=== PATIENT | female | born 1930 | race Caucasian/White ===

== ENCOUNTER 2019-06-09 06:09 | Inpatient (IN) | payer MEDICARE, OTHER ==
[2019-06-09] MEDS ORDERED: Morphine 4 MG/ML VIAL ONE ×2 (06:33→08:33)
[2019-06-09] MEDS ORDERED: Ondansetron PF 4 MG/2 ML Vial ONE ×2 (06:33→06:34)
[2019-06-09 07:31] LABS: #Lymphocytes 0.7 thou/uL (1.20-3.40); #Monocytes 0.6 thou/uL (0.11-0.59); #Neutrophils 5.8 thou/uL (1.40-6.50); %Basophils 0.2 % (0.0-1.0); %Eosinophils 0.3 % (0.0-10.0); %Lymphocytes 9.4 % (21.0-51.0); %Monocytes 8.2 % (0.0-10.0); Hemoglobin 11.4 g/dL (12.0-16.0); Mean Corpuscular Hemoglobin 27.7 pg (27.0-31.0); Mean Corpuscular Volume 89.3 fL (78.0-98.0); Mean Platelet Volume 6.9 fL (7.4-10.4); Platelet Count 252 thou/uL (130-400); RBC Distribution Width 14.1 % (11.5-14.5); Red Blood Cell (RBC) Count 4.11 mill/uL (4.20-5.40); White Blood Cell (WBC) Count 7.1 thou/uL (4.8-10.8)
[2019-06-09 07:56] LABS: ALT (SGPT) 11 U/L (8-55); AST (SGOT) 20 U/L (5-34); Albumin 3.5 g/dL (3.4-4.8); Alkaline Phosphatase 64 U/L (40-110); Anion Gap 8 mmol/L (10-20); BUN (Urea Nitrogen) 16 mg/dL (9.8-20.1); Bilirubin, Total 0.6 mg/dL (0.2-1.2); Calc. Creatinine Clearance 0 mL/min (70-130); Calcium 9.7 mg/dL (7.8-10.44); Carbon Dioxide 34 mmol/L (23-31); Chloride 101 mmol/L (98-107); Estimated GFR-MDRD Greater than 90; Globulin 3.2 g/dL (2.4-3.5); Glucose 143 mg/dL (83-110); Potassium 4.3 mmol/L (3.5-5.1); Protein, Total 6.7 g/dL (6.0-8.3); Sodium 139 mmol/L (136-145)
--- NOTE | 2019-06-09 08:41 | CT ---
PELVIC CT WITHOUT CONTRAST: HISTORY: Fall. Trauma. Pain. COMPARISON: None. FINDINGS: Visualized solid organs and alimentary canal are unremarkable. Ventral abdominal hernia containing m esenteric fat. The herniated fat is well encapsulated and measures 5.2 x 4.2 cm. No evidence of bow el herniation. Visualized urinary bladder is unremarkable. Atrophic reproductive structures are noted. The visualized lumbar spine is unremarkable. Sacrum is intact. Sacral ala are preserved. The left and right iliac wings are unremarkable. Bilateral obturator rings are intact. There is an angulated right femoral subcapital fracture with associated deformity. The left hip is unremarkable. IMPRESSION: Right hip subcapital fracture. POS: OFF
--- NOTE | 2019-06-09 08:45 | RAD ---
Exam:2 views right hip HISTORY: Pain. COMPARISON: None FINDINGS: Right subcapital fracture. Associated angulation and deformity. IMPRESSION: Right subcapital fracture.
--- NOTE | 2019-06-09 09:13 | CON ---
DATE OF CONSULTATION: 06/09/2019 This is Mary Mahmood PA-C dictating a report for Bry Sanchez MD. REQUESTING PHYSICIAN: Dr. Sun. CONSULTING PHYSICIAN: Bry Sanchez MD. REASON FOR CONSULTATION: Right hip fracture. HISTORY OF PRESENT ILLNESS: This is an 88-year-old female, who presented to the emergency department after 4 days of a right hip pain. She denies any sort of trauma or fall. Currently at bedside, her reports that she sees Dr. Robertson for regular back injections and is due for an injection today actually. They figured that her worsening pain was actually coming from her back. This worsened, then she was no longer able to walk, and they presented to our emergency facility. Workup in the emergency department including a CT scan of the right hip, demonstrates a displaced subcapital femoral neck fracture. Currently at bedside , the patient denies any other injuries. She denies any numbness or tingling. She does state that she has bunions on bilateral feet and history of hammertoe on her second toe bilaterally. She is currently undergoing wound care on the right foot for this hammertoe. The pain is worse with movement, relieved with rest, and she is unable to ambulate. She normally ambulates with a walker at home. PAST MEDICAL HISTORY: Significant for diabetes type 2, hypertension, stroke in January of 2016, and cardiac valve disease. PAST SURGICAL HISTORY: Aortic valve replacement on November 06, 2015, cyst removal of the left ovary, right knee replacement, cataract removal, intraocular lens implant, and bilateral hammer toe amputation. SOCIAL HISTORY: The patient denies alcohol or tobacco use. She lives at home with her and ambulates normally with a walker. FAMILY HISTORY: Reviewed and noncontributory. Ten-point review of systems conducted and otherwise negative except for stated above. PHYSICAL EXAMINATION: VITAL SIGNS: Shows current vital signs including blood pressure of 209/95, pulse of 77, respiratory rate of 20, temperature 98.0, pain 10/10, and O2 saturation of 92% on room air. GENERAL: The patient is awake and alert. She is in no apparent distress. She is lying supine on a stretcher in the emergency department with her currently at bedside. She is pleasant and cooperative with all questions today and answers them appropriately. HEENT: Head was normocephalic and atraumatic. NECK: Supple. Trachea midline. Breathing is nonlabored. EXTREMITIES: Evaluation of bilateral lower extremity shows no evidence of obvious leg shortening or external rotation. She does have gauze padding to both feet in the area of her bunions. She also has a wound dressing present on her right lower extremity to her second toe. No evidence of cellulitis. No distal pitting edema. The patient has pain with any movement of the right lower extremity. SKIN: Intact overlying the right hip. No obvious injuries are noted to the remainder of the extremities. RADIOGRAPHIC IMAGING: Reviewed today including CT evaluation of the right hip shows a displaced femoral neck fracture. Further imaging with plain film shows a subcapital displaced fracture of the right hip. LABORATORY DATA: Including a CBC shows a hemoglobin of 11.4, hematocrit 36.7, white blood cell count of 7.1, and a platelet count of 252. ASSESSMENT: Right femoral neck fracture with displacement. PLAN: At this time, the patient will be admitted to the Trauma Service. She did have her Eliquis last night. We will hold off on surgical intervention today. We will get her upstairs and get her comfortable. We will wait on this window in order to operate. We will plan for a right hip hemiarthroplasty in order to restore function and promote ambulation. Risks, benefits, and alternatives of the surgery were discussed at length with the patient and her today. They have verbalized understanding. They are amenable to the plan of care as listed above. Job ID: [id number] MTDD
[2019-06-09] MEDS ORDERED: Dextrose 50% Abboject 50 ML SYRINGE SLOW IVP PRN (10:34)
[2019-06-09] MEDS ORDERED: Dextrose 5% in Water 1,000 ML IV PRN ×2 (10:34→13:26)
[2019-06-09] MEDS ORDERED: Ondansetron PF 4 MG/2 ML Vial IVP PRN (10:34)
[2019-06-09] MEDS ORDERED: HYDROcodone/Acetaminophen 5/325 mg Tablet PO PRN ×2 (10:40→12:03)
[2019-06-09] MEDS ORDERED: HYDROcodone/Acetaminophen 5/325 mg Tablet ONE (11:09)
[2019-06-09 12:46] LABS: Bilirubin Negative (Negative); Blood, Urine Negative (Negative); Clarity Turbid (Clear); Glucose, Urine (Dipstick) Normal (Negative); Leukocyte 500 Leu/uL (Negative); Nitrite 2+ (Negative); Protein, Urine (Dipstick) 50 mg/dL (Neg-Trace); Squamous Epithelial 0-3 HPF (0-3); Urobilinogen Normal mg/dL (Less than 2)
[2019-06-09 12:47] LABS: RBC/HPF 0-3 HPF (0-3); WBC/HPF 0-3 HPF (0-3)
[2019-06-09 12:48] LABS: Bacteria/HPF 2+ HPF (None Seen); Triple Phosphate Crystal 3+ HPF (None Seen)
--- NOTE | 2019-06-09 15:04 | HP ---
TRAUMA ATTENDING: Dr. Colt Carlos. CONSULTING ORTHOPEDIST: Dr. Sanchez. The patient's PCP is Dr. Oseguera, Cardiology is Dr. Ramírez as well as dr. Ramirez, Pain Medicine is Dr. Robertson. HISTORY OF PRESENT ILLNESS: Ms. Galeas is an 88-year-old female with past medical history of chronic back pain, restless legs syndrome, hypertension, and diabetes , presented to the emergency department today with chief complaint of worsening low back pain and right sided pain. CT exam in the emergency department shows a right-sided subcapital hip fracture with displacement. The patient was given pain control and we were asked to admit the patient to the Trauma Service. Of note, the patient is on Eliquis for an aortic valve replacement. Her last dose was last night. Orthopedics has seen the patient and planning for operative repair in 48 hours after last dose of medication. I evaluated the patient on the surgery hsieh. She is alert and oriented. She was hypertensive. This is slowly improved. She has not taken her home medications. She has no breathing troubles. No chest pain. They are unsure of the etiology of her hip fracture. She states that she has had no falls. She started hurting about a week ago. It got acutely worse about 4 days ago and then much worse yesterday where she could not even transfer out of her wheelchair. She normally gets about with a walker, however, with this pain, she has been in a wheelchair. She did have plain films at outside facility and awaiting results of the same yesterday. PAST MEDICAL HISTORY: Chronic pain, restless leg, hypertension, diabetes, and aortic valve replacement. PAST SURGICAL HISTORY: Percutaneous aortic valve replacement and a cyst removal. MEDICATIONS: 1. Eliquis 2.5 mg. 2. [place] 3. Fish oil. 4. Lasix 20. 5. Multivitamin. 6. Iron 325. 7. Lisinopril 10. 8. Metoprolol 25. 9. Metformin 500. 10. Potassium 10. 11. Verapamil 120 extended release. 12. Calcium. 13. Ropinirole 1 mg. ALLERGIES: CODEINE AND TRAMADOL CAUSING SWELLING ABOUT THE LIPS. FAMILY HISTORY: Significant for diabetes and hypertension in her mother, unknown in her father. SOCIAL HISTORY: The patient quit smoking many years ago. No tobacco or alcohol use. She is currently , lives at home. Utilizes a walker to get a bout. PHYSICAL EXAMINATION: VITAL SIGNS: Temperature is 98.1, blood pressure is 177/79, heart rate is 88, respiratory rate is 14. She is saturating 97% on nasal cannula. GENERAL: This is an 88-year-old female, in slight pain, lying supine in bed. HEENT: Normocephalic and atraumatic. Trachea is midline. No JVD is appreciated. RESPIRATORY: Equal rise and fall. Bilateral breath sounds. Clear to auscultation in upper and lower lobes bilaterally. CARDIOVASCULAR: She has a systolic murmur noted with regular rhythm. Strong pulses. No edema. ABDOMEN: Soft and nontender. Pelvis is stable. Does have pain to the right hip. MUSCULOSKELETAL: She has pain, shortening of the right lower extremity. She also has a wound about the right second toe that is being followed by Wound Care and bunions bilaterally. She has no edema. She has strong pulses in all 4 extremities and warm extremities. PSYCHIATRIC: Normal mood and affect. NEUROLOGIC: Alert and oriented to person, place, time, and event. DIAGNOSTIC DATA: From today, white blood cell count is 7.1, platelets 252, hemoglobin and hematocrit of 11.4 and 36.7 respectively. Chemistry; sodium is 139, potassium 4.3, chloride is 101, CO2 is 34, BUN is 16, creatinine 0.59, glucose 143, calcium is 9.7. Total bilirubin 0.6, AST and ALT of 20 and 11 respectively. The remainder of the liver profile is unremarkable. Urine is trace ketones, 2+ nitrites and leukocyte esterase with no epithelial cells and 2+ bacteria. CT shows the right subcapital hip fracture. ASSESSMENT: 1. Right subcapital hip fracture. 2. Bacteriuria, possible urinary tract infection, not septic. 3. History of diabetes. 4. History of aortic valve replacement. 5. Acute traumatic pain. PLAN: 1. We will admit the patient to surgery hsieh. 2. Orthopedics has been consulted, appreciate recommendations. 3. Can eat today likely surgery over the weekend. 4. We will hold Eliquis. 5. Point of care glucose and sliding scale insulin. 6. Wound care consult for the foot. 7. Cipro for her UTI. 8. Urine culture. 9. Continue home antihypertensive medications. 10. Hydralazine as needed for breakthrough antihypertensive with hold parameters. 11. Continue pain control with [place] and scheduled ibuprofen. 12. Oxygen as needed to maintain SpO2 greater than 92%. 13. Famotidine for GI prophylaxis. Diet will be carb controlled. 14. Access of peripheral IV. 15. Disposition is surgery hsieh. 16. Prophylaxis is again famotidine. 17. The patient's pain medicine doctor has been advised for admission. 18. I have coordinated care with the emergency department staff, the floor staff , as well as Orthopedics. The patient was discussing with Dr. Colt Carlos. Job ID: [id number] MTDTiffany
[2019-06-09] MEDS: Ibuprofen 600 MG TAB PO SCH ×2 (15:15→22:11)
[2019-06-09] MEDS ORDERED: Metoprolol Tartrate 25 MG TAB PO SCH ×2 (18:00→21:00)
[2019-06-09] MEDS ORDERED: Lisinopril 5 MG TAB PO SCH (18:00)
[2019-06-09] MEDS: rOPINIRole HCl 2 MG TAB PO PRN (18:17)
[2019-06-09] MEDS: Cipro 250 MG TAB PO SCH (20:33)
[2019-06-09] MEDS: Famotidine 20 MG TAB PO SCH (20:34)
--- NOTE | 2019-06-10 00:10 | PRG ---
DATE OF SERVICE: 06/09/2019 SUBJECTIVE: Ms. Galeas is an 88-year-old female, on Eliquis. Hip fracture noted today. Pain is controlled. She has had some hypotension. Currently, blood pressure is stable. Her mental status is normal. She has no complaints, moving her extremities, tolerated diet, having urination. I have discussed we held her night blood pressure medicines. She is on Requip, and her daily home blood pressure medicines were given earlier. PLAN: 1. We will continue to monitor. 2. She is currently normotensive at this time. 3. Pain control as needed. 4. Plan for operative theater on Thursday. Discussed with the family and updated them. Discussed with bedside RN. Job ID: [id number]
[2019-06-10] MEDS: Cipro 250 MG TAB PO SCH ×2 (05:11→20:07)
[2019-06-10] MEDS: Ibuprofen 600 MG TAB PO SCH ×3 (05:12→22:25)
[2019-06-10] MEDS: rOPINIRole HCl 2 MG TAB PO PRN ×2 (05:52→16:22)
[2019-06-10 05:54] LABS: #Lymphocytes 0.6 thou/uL (1.20-3.40); #Monocytes 0.8 thou/uL (0.11-0.59); #Neutrophils 6.5 thou/uL (1.40-6.50); %Eosinophils 0.5 % (0.0-10.0); %Lymphocytes 7.5 % (21.0-51.0); %Monocytes 10.2 % (0.0-10.0); %Neutrophils 81.9 % (42.0-75.0); Hemoglobin 10.5 g/dL (12.0-16.0); Mean Corpuscular Hemoglobin 27.2 pg (27.0-31.0); Mean Corpuscular Volume 90.7 fL (78.0-98.0); Mean Platelet Volume 7.1 fL (7.4-10.4); Platelet Count 255 thou/uL (130-400); Red Blood Cell (RBC) Count 3.85 mill/uL (4.20-5.40); White Blood Cell (WBC) Count 7.9 thou/uL (4.8-10.8)
[2019-06-10 06:06] LABS: Anion Gap 11 mmol/L (10-20); BUN (Urea Nitrogen) 28 mg/dL (9.8-20.1); Calc. Creatinine Clearance 41 mL/min (70-130); Calcium 9.1 mg/dL (7.8-10.44); Carbon Dioxide 31 mmol/L (23-31); Chloride 101 mmol/L (98-107); Estimated GFR-MDRD 47; Glucose 112 mg/dL (83-110); Potassium 4.5 mmol/L (3.5-5.1); Sodium 138 mmol/L (136-145)
[2019-06-10] MEDS ORDERED: Sodium Chloride 0.9% 500 ML IV SCH (08:15)
[2019-06-10] MEDS ORDERED: Hydrocortisone Sod Succ/PF 100 mg/2 ml Vial IVP SCH (09:30)
[2019-06-10] MEDS: Metoprolol Tartrate 25 MG TAB PO SCH ×2 (09:36→22:53)
[2019-06-10] MEDS: Lisinopril 5 MG TAB PO SCH (09:36)
[2019-06-10] MEDS: Calcium Carbonate 500 MG TAB PO SCH (09:38)
[2019-06-10] MEDS: HYDROcodone/Acetaminophen 5/325 mg Tablet PO PRN (10:24)
[2019-06-10] MEDS ORDERED: Acetaminophen 500 MG TAB PO SCH (12:00)
[2019-06-10] MEDS: Famotidine 20 MG TAB PO SCH (12:44)
[2019-06-10] MEDS: Morphine 2 MG/ML SYRINGE SLOW IVP PRN ×3 (12:51→20:08)
--- NOTE | 2019-06-10 14:46 | PRG ---
DATE OF SERVICE: 06/10/2019 SUBJECTIVE: Ms. Galeas is an 88-year-old female, status post ground-level fall with right hip fracture. She has a history of diabetes, aortic valve replacement, and new urinary tract infection. The patient is on Eliquis and the patient has planned to go to the OR with Orthopedics on Thursday for ORIF of right hip fracture, recently using Eliquis. The patient reports pain is not well controlled. She has pain with movement; however, she tolerated with her regular diet. Her urine is adequate and she is yet to have bowel. Her vital signs are stable. OBJECTIVE: GENERAL: Currently, the patient is lying in bed comfortable with no acute respiratory distress. She complains pain on the right hip. VITAL SIGNS: Temperature 98.5, heart rate 57, respiratory rate 20, O2 sat 100 on 3 L cannula, and blood pressure 107/63. LUNGS: Clear bilaterally. HEART: Regular rate and rhythm. ABDOMEN: Soft and nondistended. EXTREMITIES: Neurovascularly intact x4. NEUROLOGICAL: No focal neurology deficits. Right hip has limited range of motion due to pain. LABORATORY DATA: Today showed hemoglobin of 10.5, white count of 7.9, sodium of 138, potassium of 4.5, creatinine of 1.1. Cortisone level is 14. ASSESSMENT: 1. Status post ground-level fall. 2. Right hip fracture. 3. Urinary tract infection, treated. 4. Adrenal insufficiency. 5. History of diabetes and aortic valve replacement. PLAN: Continue supportive care. Continue pain control. Non-pharmacological DVT prophylaxis, gastritis prophylaxis. We will adjust pain control using Tylenol. Add Tylenol p.r.n., and [place] p.r.n. The patient will go to the OR tomorrow with Orthopedic for ORIF of right hip fracture. Continue antibiotic for UTI. Adjust sliding scale for diabetes. The patient was seen and evaluated with Dr. Carlos on round this morning. Job ID: [id number] [facility]
[2019-06-10] MEDS: HumaLOG 300 UNITS/3 ML VIAL SC PRN (18:39)
[2019-06-10] MEDS: Sodium Chloride 0.9% 1,000 ML IV SCH (22:28)
[2019-06-11] MEDS: rOPINIRole HCl 2 MG TAB PO PRN ×2 (02:22→19:55)
[2019-06-11] MEDS: Morphine 2 MG/ML SYRINGE SLOW IVP PRN ×3 (04:13→14:48)
[2019-06-11] MEDS: Ibuprofen 600 MG TAB PO SCH ×2 (04:50→13:49)
[2019-06-11] MEDS: Cipro 250 MG TAB PO SCH (04:50)
[2019-06-11] MEDS ORDERED: Fentanyl 100 MCG/2 ML VIAL ONE ×2 (07:25→10:44)
[2019-06-11] MEDS ORDERED: Phenylephrine HCL 10 MG/ML VIAL ONE (07:26)
[2019-06-11] MEDS ORDERED: Promethazine HCl 25 MG/ML VIAL IM PRN (09:06)
[2019-06-11] MEDS ORDERED: PACU-Morphine 4MG/ML VIAL SLOW IVP PRN (09:06)
[2019-06-11] MEDS ORDERED: Promethazine HCl 25 MG/ML VIAL SLOW IVP PRN (09:06)
[2019-06-11] MEDS ORDERED: Morphine Sulfate 2 MG/ML SYRINGE SLOW IVP PRN (09:06)
[2019-06-11] MEDS ORDERED: Ondansetron HCl/PF 4 MG/2 ML Vial IVP PRN (09:06)
[2019-06-11] MEDS: Calcium Carbonate 500 MG TAB PO SCH (09:45)
[2019-06-11] MEDS: Lisinopril 5 MG TAB PO SCH (09:45)
[2019-06-11] MEDS: Metoprolol Tartrate 25 MG TAB PO SCH (09:45)
[2019-06-11] MEDS: Famotidine 20 MG TAB PO SCH (09:45)
--- NOTE | 2019-06-11 10:59 | RAD ---
Exam:One view right hip HISTORY: Status post arthroplasty COMPARISON: None FINDINGS: Frog-leg lateral view of the right hip demonstrates a right hip arthroplasty. Based on imag es provided, no malalignment. IMPRESSION: Post procedure radiograph demonstrates right hip arthroplasty.
--- NOTE | 2019-06-11 11:02 | RAD ---
Exam: One view pelvis HISTORY: Status post right hip arthroplasty FINDINGS: There appears to be right hip arthroplasty which appears to be appropriately aligned is evelyn ntified. IMPRESSION: Findings compatible with right hip arthroplasty.
[2019-06-11] MEDS ORDERED: HYDROcodone/Acetaminophen 5/325 mg Tablet ONE (11:10)
[2019-06-11] MEDS ORDERED: Lidocaine 1% PF 5 ML VIAL ONE (11:54)
[2019-06-11] MEDS ORDERED: Rocuronium Bromide 10 MG/ML (10ML VIAL) ONE (11:54)
[2019-06-11] MEDS ORDERED: Glycopyrrolate 0.2 MG/ML 5 ML SYRINGE ONE (11:54)
[2019-06-11] MEDS ORDERED: PROPOFOL 200 MG/20 ML VIAL ONE (11:54)
[2019-06-11] MEDS ORDERED: PHENYLEPHRINE-NS 100 MCG/ML 10 ML SYRINGE ONE (11:54)
[2019-06-11] MEDS: Sodium Chloride 0.9% 1,000 ML IV SCH (12:14)
[2019-06-11] MEDS ORDERED: Furosemide 20 MG/2 ML VIAL SLOW IVP SCH (14:45)
[2019-06-11] MEDS ORDERED: Amiodarone 150 MG in Dextrose 5% in Water 100 ML IVPB SCH (14:45)
[2019-06-11] MEDS: CEFAZOLIN 2 GM in Premix Bag 1 BAG IVPB SCH (15:56)
--- NOTE | 2019-06-11 17:10 | PRG ---
DATE OF SERVICE: 06/11/2019 SUBJECTIVE: Ms. Galeas is an 88-year-old female status post ground-level fall with right hip fracture. She underwent ORIF with right hip fracture earlier today. Postoperatively, the patient developed AFib with RVR, breathing a little bit labor. Blood pressure is stable. Complain of severe pain of the surgical site. OBJECTIVE: GENERAL: Currently, the patient is lying down in bed, in acute distress due to pain and mild respiratory distress. VITAL SIGNS: Temperature 97.6, heart rate is 130 to 160, O2 saturation 95 on 3 L nasal cannula, blood pressure 115/58. LUNGS: Rales bilaterally. HEART: Irregular rate and irregular rhythm. ABDOMEN: Soft and nondistended. EXTREMITIES: Neurovascularly intact x4. Postoperative dressing clean, dry, intact. NEUROLOGIC: No focal neurologic deficits. ASSESSMENT: 1. Atrial fibrillation with rapid ventricular response. 2. Status post ground-level fall. 3. Right hip fracture status post open reduction and internal fixation of right hip fracture, postoperative day 0. 4. Urinary tract infection, treated. 5. Adrenal insufficiency, treated. 6. History of diabetes. 7. Aortic valve replacement. PLAN: The patient will be transferred to telemetry. She will have rate control with the amiodarone, Lasix for pulmonary congestion, morphine for pain control. Continue supportive care. Continue pain control. The patient will be working with PT/OT tomorrow. Anticipate placement in rehabilitation facility. Job ID: [id number]
[2019-06-11 17:16] LABS: ALT (SGPT) 15 U/L (8-55); AST (SGOT) 25 U/L (5-34); Albumin 2.7 g/dL (3.4-4.8); Alkaline Phosphatase 56 U/L (40-110); Bilirubin, Direct 0.2 mg/dL (0.1-0.3); Bilirubin, Total 0.3 mg/dL (0.2-1.2); Magnesium 1.9 mg/dL (1.6-2.6); Potassium 4.6 mmol/L (3.5-5.1); Protein, Total 5.3 g/dL (6.0-8.3)
[2019-06-11 17:27] LABS: Phosphorus 3.8 mg/dL (2.3-4.7)
[2019-06-11] MEDS ORDERED: Digoxin 0.5 MG/2 ML AMP ONE (17:28)
[2019-06-11 17:37] LABS: Anion Gap 14 mmol/L (10-20); BUN (Urea Nitrogen) 43 mg/dL (9.8-20.1); Calc. Creatinine Clearance 36 mL/min (70-130); Calcium 8.7 mg/dL (7.8-10.44); Carbon Dioxide 27 mmol/L (23-31); Chloride 102 mmol/L (98-107); Estimated GFR-MDRD 40; Glucose 129 mg/dL (83-110); Potassium 4.7 mmol/L (3.5-5.1); Sodium 138 mmol/L (136-145)
[2019-06-11 17:53] LABS: CKMB 4.9 ng/mL (0-6.6)
--- NOTE | 2019-06-11 18:05 | RAD ---
Chest AP view INDICATION: Acute blood pressure changes concern for infection COMPARISON: None FINDINGS: Lungs:There is perihilar interstitial edema Cardiac silhouette:There is moderate cardiomegaly Pulmonary vasculature:There is moderate pulmonary vascular congestion. Pleural spaces:Small bilateral pleural effusions are present. Upper abdomen:No abnormality seen. Osseous structures: No acute osseous abnormality. There is healed deformity of the proximal right hum erus. There is diffuse osteopenia. There is scattered degenerative and osteoarthritic change present. Additional findings:None. IMPRESSION: Mild CHF
--- NOTE | 2019-06-11 18:13 | CON ---
DATE OF CONSULTATION: 06/11/2019 REASON FOR CONSULTATION: Atrial fibrillation with RVR and hypotension. HISTORY OF PRESENT ILLNESS: Ms. Galeas is a very pleasant 88-year-old white female, who comes to the hospital for hip pain. She was diagnosed with a spontaneous fracture of the right hip and she underwent surgery earlier today. She has a history of aortic stenosis and she had a TAVR placed several years back. At the time of the placement of a TAVR, she was evaluated with a heart catheterization that showed no significant coronary artery disease and did not have to have any stenting done prior. On my evaluation, Ms. Galeas had a code green called and she is in atrial fibrillation RVR, heart rate in the 150s to 170s, hypotensive in the 70s/40s, but she is fully conversant and cognizant that was going on. Family is at bedside. Denies any chest pain, tightness, or pressure. PAST MEDICAL HISTORY: 1. Aortic stenosis, status post TAVR. 2. Hypertension. 3. Type 2 diabetes. PAST SURGICAL HISTORY: 1. Cyst removal. 2. TAVR. She has a history of postoperative atrial fibrillation after her TAVR. FAMILY HISTORY: Noncontributory. SOCIAL HISTORY: Quit smoking several years ago. No alcohol, tobacco, or drugs currently. OUTPATIENT MEDICATIONS: 1. Ropinirole. 2. Metformin 500 mg b.i.d. 3. Verapamil 120 mg a day. 4. Pramipexole. 5. Potassium chloride 10 mEq a day. 6. [place]-3 fish oil. 7. Multivitamin daily. 8. Metoprolol tartrate 25 mg b.i.d. 9. Lisinopril 5 mg a day. 10. Hydrocodone p.r.n. 11. Furosemide 20 mg a day. 12. Calcium carbonate. 13. Eliquis 2.5 mg b.i.d. ALLERGIES: CODEINE AND TRAMADOL. REVIEW OF SYSTEMS: A 12-point review of systems was done and was all negative unless stated in the history of present illness. PHYSICAL EXAMINATION: VITAL SIGNS: Temperature 97.6, pulse 130s to 160s, and saturating 100% on Ventimask. Blood pressure the last one was 115/58 after better rate control. GENERAL: Awake, alert, and oriented x3. No distress. HEENT: Normocephalic. NECK: Supple. LUNGS: Clear. CARDIOVASCULAR: Irregularly irregular. Heart rate in the 120s to 150s. ABDOMEN: Soft. Positive bowel sounds. EXTREMITIES: 1+ edema. SKIN: Warm and dry. LABORATORY DATA: Laboratory work was reviewed. CBC with a white count of 7.9, hemoglobin of 10.5, hematocrit of 34, and platelet count of 255. No significant drop in hemoglobin post surgery. Chemistry with a creatinine of 1.26, this has increased from her admission of 0.59 with a BUN of 43, potassium is 4.7, and phosphorus is normal as well as magnesium. Troponin was 0.096 initially. TSH was 0.31 with an albumin of 2.7. UA appears to be positive with a positive Proteus mirabilis urine culture. Her Proteus is pansensitive, but resistant to nitrofurantoin. EKG was reviewed atrial fibrillation with RVR. ASSESSMENT: 1. Atrial fibrillation with rapid ventricular response. 2. Hypotension, likely related to atrial fibrillation with rapid ventricular response. 3. Spontaneous hip fracture status post open reduction and internal fixation. 4. History of transcatheter aortic valve replacement. Follow in [place]. 5. Normal left ventricular function on echo back in 2015. No re-evaluation here in this facility. PLAN: 1. Amiodarone drip. 2. IV digoxin. She is starting to get better rate control and her blood pressure started to come back up. She did get some fluids as well. We will hold the fluids for now as I am concerned she is going to get fluid overloaded. 3. She has been off her blood pressure medicines as two nights ago. She received some pain medicines. Her blood pressure dropped, so she has been off the beta brant. Once her blood pressure gets better, we will start some of these medications back. Currently only on amiodarone drip and digoxin as needed. 4. Restart full anticoagulation once safe from the surgical perspective. 5. We will follow. TIME SPENT: A 45 minutes of critical care time at bedside. Job ID: [id number]
[2019-06-11] MEDS ORDERED: Fentanyl 100 MCG/2 ML VIAL SLOW IVP SCH (19:15)
[2019-06-11] MEDS ORDERED: Cipro 250 MG TAB PO SCH (20:00)
[2019-06-11] MEDS: HYDROcodone/Acetaminophen 5/325 mg Tablet PO PRN (21:14)
[2019-06-11] MEDS ORDERED: rOPINIRole HCl 1 MG TAB PO SCH (22:30)
[2019-06-12] MEDS: HYDROcodone/Acetaminophen 5/325 mg Tablet PO PRN ×4 (00:32→23:00)
[2019-06-12] MEDS: CEFAZOLIN 2 GM in Premix Bag 1 BAG IVPB SCH (00:33)
[2019-06-12] MEDS: Amiodarone 450 MG in Dextrose 5% in Water 250 ML IVPB SCH (00:33)
[2019-06-12] MEDS: Ibuprofen 600 MG TAB PO SCH ×4 (00:34→21:31)
[2019-06-12] MEDS ORDERED: Sodium Chloride 0.9% 500 ML IV SCH ×2 (03:45→22:00)
[2019-06-12 04:00] LABS: #Eosinphils 0.2 thou/uL (0.0-0.7); #Lymphocytes 0.8 thou/uL (1.20-3.40); #Neutrophils 6.8 thou/uL (1.40-6.50); %Basophils 0.3 % (0.0-1.0); %Eosinophils 2.3 % (0.0-10.0); %Lymphocytes 8.7 % (21.0-51.0); %Monocytes 11.3 % (0.0-10.0); %Neutrophils 77.4 % (42.0-75.0); Hemoglobin 9.3 g/dL (12.0-16.0); Mean Corpuscular HGB CONC 30.5 g/dL (32.0-36.0); Mean Corpuscular Hemoglobin 27.5 pg (27.0-31.0); Mean Corpuscular Volume 89.9 fL (78.0-98.0); Mean Platelet Volume 7.3 fL (7.4-10.4); Platelet Count 236 thou/uL (130-400); RBC Distribution Width 13.8 % (11.5-14.5); Red Blood Cell (RBC) Count 3.37 mill/uL (4.20-5.40); White Blood Cell (WBC) Count 8.8 thou/uL (4.8-10.8)
[2019-06-12 04:22] LABS: Anion Gap 11 mmol/L (10-20); BUN (Urea Nitrogen) 47 mg/dL (9.8-20.1); Calc. Creatinine Clearance 25 mL/min (70-130); Calcium 8.6 mg/dL (7.8-10.44); Carbon Dioxide 27 mmol/L (23-31); Chloride 100 mmol/L (98-107); Estimated GFR-MDRD 27; Glucose 134 mg/dL (83-110); Magnesium 1.9 mg/dL (1.6-2.6); Phosphorus 4.2 mg/dL (2.3-4.7); Potassium 4.9 mmol/L (3.5-5.1); Sodium 133 mmol/L (136-145)
--- NOTE | 2019-06-12 05:48 | PRG ---
DATE OF SERVICE: 06/12/2019 SUBJECTIVE: The patient is currently on the [facility]. She is status post ground level fall, where she sustained a right hip fracture. She has undergone open reduction and internal fixation of same. Though today, she developed atrial fibrillation with rapid ventricular response and was moved to the [facility]. She was started on amiodarone drip. It was also felt that she likely had a component of congestive heart failure with this. At the time of my visit, the patient's chief complaint and the family's biggest concern was her restless legs syndrome appeared to be aggravating her postop hip. The patient only received one dose of her Requip, and I discussed with them adding an additional dose as she is allowed up to three doses per day. OBJECTIVE: VITAL SIGNS: The patient remains slightly tachycardic with a heart rate between 105 and 117. Systolic blood pressure is 98. HEART: Her rhythm does appear to be sinus. LUNGS: Have slight rales. Her postop dressing is clean, dry, and intact. ASSESSMENT: 1. Status post ground level fall. 2. Status post open reduction and internal fixation of right hip fracture. 3. Atrial fibrillation with rapid ventricular response, now appears sinus with tachycardia. 4. Urinary tract infection, undergoing treatment. PLAN: Plan will be to continue rate control per Cardiology. Diurese as needed. Follow urinary output. Continue antibiotics for her urinary tract infection. Repeat labs and radiographs in the morning. We will also encourage physical and occupational therapy. Job ID: [id number]
[2019-06-12] MEDS ORDERED: Norepinephrine 8 MG/0.9% NS 250 ML IVPB SCH (06:42)
[2019-06-12] MEDS: Famotidine 20 MG TAB PO SCH (08:43)
[2019-06-12] MEDS: rOPINIRole HCl 2 MG TAB PO PRN ×3 (08:43→21:31)
[2019-06-12] MEDS: Calcium Carbonate 500 MG TAB PO SCH (08:43)
[2019-06-12] MEDS ORDERED: Hydrocortisone Sod Succ/PF 100 mg/2 ml Vial IVP SCH (08:45)
[2019-06-12] MEDS: Furosemide 20 MG/2 ML VIAL SLOW IVP SCH ×2 (08:52→11:03)
[2019-06-12] MEDS ORDERED: Enoxaparin Sodium 40 MG/0.4 ML SYRINGE SC SCH (09:00)
--- NOTE | 2019-06-12 09:08 | RAD ---
XR Chest 1 View Portable History: Fluid overload Comparison: Radiograph June 11, 2019 Findings: Prominent skinfold along the left superior hemithorax. Heart size is enlarged. Small effusi ons. Mild pulmonary venous congestion. Dense calcifications of the transverse aorta. Old right humeral neck fracture. Impression: Findings of mild volume overload.
[2019-06-12] MEDS ORDERED: Bisacodyl 5 MG TAB PO SCH (10:45)
[2019-06-12] MEDS: Apixaban 2.5 MG TAB PO SCH ×2 (10:58→21:31)
[2019-06-12] MEDS ORDERED: Furosemide 20 MG/2 ML VIAL SLOW IVP SCH (12:00)
--- NOTE | 2019-06-12 13:24 | PDOC.CPN ---
- Subjective Date: 06/12/19 Time: 13:22 Interval history: She had low blood pressure overnight and was given boluses of IV fluids. This morning she was transferred to the ICU as her BP remained int he 70's over 40's so order was placed to start levophed but her BP started to come up and levophed was never started. She received a dose of steroids for possible adrenal insufficiency and her BP now is in the 170's over 80's. She is however more confused but pleasant. - Review of Systems ROS unobtainable: due to mental status - Objective Allergies/Adverse Reactions: Allergies Allergy/AdvReac Type Severity Reaction Status Date / Time codeine Allergy Verified 03/01/16 20:04 tramadol Allergy Verified 06/09/19 13:21 Visit Medications: Current Medications Acetaminophen (Tylenol) 1,000 mg PO Q6H PRN PRN Reason: MILD PAIN 1-3 Hydrocodone Bitart/Acetaminophen ([place] 5/325) 2 tab PO Q4H PRN PRN Reason: Severe Pain (7-10) Last Admin: 06/12/19 00:32 Dose: 2 tab Hydrocodone Bitart/Acetaminophen ([place] 5/325) 1 tab PO Q6H PRN PRN Reason: Moderate Pain (4-6) Last Admin: 06/12/19 10:47 Dose: 1 tab Apixaban (Eliquis) 2.5 mg PO BID [facility] Last Admin: 06/12/19 10:58 Dose: 2.5 mg Bisacodyl (Dulcolax) 10 mg PO DAILY [facility] Calcium Carbonate (Oscal-500) 500 mg PO DAILY [facility] Last Admin: 06/12/19 08:43 Dose: 500 mg Dextrose/Water (Dextrose 50%) 25 gm SLOW IVP PRN PRN PRN Reason: Hypoglycemia Famotidine (Pepcid) 20 mg PO DAILY [facility] Last Admin: 06/12/19 08:43 Dose: 20 mg Furosemide (Lasix) 20 mg SLOW IVP NOW [facility] Stop: 06/12/19 14:00 Glucagon (Glucagon) 1 mg IM PRN PRN PRN Reason: Hypoglycemia Hydralazine HCl (Apresoline) 10 mg SLOW IVP Q4H PRN PRN Reason: SBP > 170 or DBP > 100 Hydrocortisone Sodium Succinate (Solu-Cortef) 25 mg IVP 0300,0900,1500,2100 [facility] Dextrose/Water (D5w) 1,000 mls @ 0 mls/hr IV .Q0M PRN PRN Reason: Hypoglycemia Amiodarone HCl 450 mg/ (Dextrose/Water) 259 mls @ 0 mls/hr IVPB INF [facility]; Protocol Last Admin: 06/12/19 00:33 Dose: 259 mls Ciprofloxacin/Dextrose 400 mg/ (Device) 200 mls @ 200 mls/hr IVPB 0700,1900 [facility] Last Admin: 06/12/19 08:45 Dose: 200 mls Norepinephrine Bitartrate (Levophed) 250 mls @ 0 mls/hr IVPB INF [facility]; Protocol Ibuprofen (Motrin) 600 mg PO Q8HR [facility] Last Admin: 06/12/19 08:45 Dose: Not Given Insulin Human Lispro (Humalog) 0 units SC .MILD SLIDING SCALE PRN PRN Reason: Mild Correctional Scale Last Admin: 06/10/19 18:39 Dose: 3 unit Morphine Sulfate (Morphine) 2 mg SLOW IVP Q2H PRN PRN Reason: Mild Pain (1-3) Last Admin: 06/11/19 14:48 Dose: 2 mg Ondansetron HCl (Zofran) 4 mg IVP Q6H PRN PRN Reason: Nausea Ropinirole HCl (Requip) 2 mg PO TIDPRN PRN PRN Reason: Pain Last Admin: 06/12/19 08:43 Dose: 2 mg Sodium Chloride (Flush - Normal Saline) 10 ml IVF PRN PRN PRN Reason: Saline Flush Vital Signs & Weight: Vital Signs Temp Pulse Resp BP BP Pulse Ox 06/12/19 07:00 108 H 22 H 108/72 96 06/12/19 06:55 98.1 F 122 H 28 H 112/74 96 06/12/19 03:52 97.1 F L Admit Weight 163 lb Weight 163 lb - Physical Exam General: other (Confused.) HEENT: mucus membranes moist Neck: supple neck Cardiac: irregularly regular Lungs: bibasilar rales Neuro: no lateralizing findings Abdomen: active bowel sounds Extremities: 1+ LE edema Skin: clear Musculoskeletal: no pain, pain in joint - Labs Result Diagrams: 06/12/19 03:50 06/12/19 03:50 Troponin/CKMB CK-MB (CK-2) 4.9 ng/mL (0-6.6) 06/11/19 17:04 Troponin I 0.096 ng/mL (< 0.028) H 06/11/19 17:04 - Telemetry Supraventricular conduction: atrial fibrillation - Assessment/Plan Assessment/Plan: 1. Afib RVR 2. Spontaneous hip fracture s/p ORIF 3. Hx of TAVR 4. Confusion. 5. Hypotension, resolved. 6. UTI, proteus. PLAN: - Will start gentle diuresis. - Continue amiodarone for lenient rate control. - Start full anticoagulation for stroke prophylaxis as soon as safe from surgical perspective. - Cipro for proteus UTI. - Monitor in ICU overnight. - Critical Care Time Critical care time (mins): 30
[2019-06-12] MEDS: Hydrocortisone Sod Succ/PF 100 mg/2 ml Vial IVP SCH ×2 (16:02→21:32)
[2019-06-12] MEDS: HumaLOG 300 UNITS/3 ML VIAL SC PRN ×2 (18:02→22:00)
[2019-06-12] MEDS ORDERED: Furosemide 40 MG/4 ML VIAL SLOW IVP SCH (18:45)
--- NOTE | 2019-06-12 19:03 | PRG ---
DATE OF SERVICE: 06/12/2019 SUBJECTIVE: Ms. Galeas is an 88-year-old female, status post ground level fall with right hip fracture. She underwent ORIF of right hip fracture, postop day 1. Postop, the patient developed atrial fibrillation has been infused with amiodarone. The patient's atrial fibrillation is rate controlled. However , last night, the patient experienced hypotension and was transferred to ICU. This morning, the patient's blood pressure is still a little bit low. Steroid level is decreased at a level of 12.6. The patient is also a little bit confused, but still aware and participates on conversation. OBJECTIVE: GENERAL: The patient is lying down in bed, comfortable with no acute respiratory distress. VITAL SIGNS: Heart rate is 101, blood pressure 107/85, respiratory rate 26, O2 saturation 100 on 2 L, temperature is 98.4. LUNGS: Rales bilaterally. HEART: Irregular rate, irregular rhythm. ABDOMEN: Soft and nondistended. EXTREMITIES: Postop dressing clean, dry, intact. Neurovascularly intact x4. ASSESSMENT: 1. Status post ground level fall. 2. Right hip fracture, status post open reduction and internal fixation of right hip fracture, postoperative day 1. 3. Atrial fibrillation with RVR, rate controlled. 4. Urinary tract infection, treated. 5. Adrenal insufficiency, treated. 6. History of diabetes, aortic replacement. PLAN: Will be to continue supportive care. Continue pain control. Continue atrial fibrillation treatment per Dr. Ann. Continue adrenal insufficiency with Solu-Cortef. Continue DVT prophylaxis. The patient will need to work with PT/ OT, and anticipate placement in rehabilitation facility. Job ID: [id number] [facility]
[2019-06-12 19:18] LABS: Anion Gap 16 mmol/L (10-20); BUN (Urea Nitrogen) 54 mg/dL (9.8-20.1); Calc. Creatinine Clearance 22 mL/min (70-130); Carbon Dioxide 23 mmol/L (23-31); Chloride 94 mmol/L (98-107); Estimated GFR-MDRD 23; Glucose 247 mg/dL (83-110); Potassium 5.2 mmol/L (3.5-5.1); Sodium 128 mmol/L (136-145)
--- NOTE | 2019-06-13 01:21 | PRG ---
DATE OF SERVICE: 06/12/2019 SUBJECTIVE: The patient is currently in the critical care unit. She was moved from the [facility] today after reportedly having episodes of hypotension. The patient was given fluid boluses and hydrocortisone, which seemed to have improved her blood pressure. She has had Lasix also today as she also appears to be fluid overloaded, had a BNP last night of 1407. Tonight, on my visit, the patient was asleep. Her family says that she had just gotten some rest. They described her as being agitated parts of the day and asked that she not be awakened now that she is resting. They told me that she has had somewhat of an appetite today and was able to take in some p.o. Nurses state that her urinary output has remained around 20 to 25 this evening. PHYSICAL EXAMINATION: VITAL SIGNS: Stable. GENERAL: The patient is resting comfortably in bed. She is asleep. She appears in no distress. LUNGS: Her respirations appear nonlabored. HEART: The rhythm is a sinus rhythm with a rate of 70 to 80 during my visit. ASSESSMENT AND PLAN: 1. Status post ground-level fall. 2. Status post open reduction and internal fixation of right hip fracture. 3. Atrial fibrillation with rapid ventricular response, resolved. 4. Adrenal insufficiency, treated with hydrocortisone. 5. Urinary tract infection, under treatment. The plan will be to continue close monitoring of the patient to include her urinary output. We will repeat her labs and radiographs in the morning, and hopefully, she will be able to start working with the therapist. Job ID: [id number]
[2019-06-13] MEDS: rOPINIRole HCl 2 MG TAB PO PRN ×5 (01:38→22:45)
[2019-06-13] MEDS: HYDROcodone/Acetaminophen 5/325 mg Tablet PO PRN ×5 (02:40→19:42)
[2019-06-13] MEDS: Hydrocortisone Sod Succ/PF 100 mg/2 ml Vial IVP SCH (02:42)
[2019-06-13] MEDS: Amiodarone 450 MG in Dextrose 5% in Water 250 ML IVPB SCH ×2 (03:26→18:25)
[2019-06-13] MEDS: Ibuprofen 600 MG TAB PO SCH (05:03)
[2019-06-13] MEDS: HumaLOG 300 UNITS/3 ML VIAL SC PRN ×2 (05:11→16:59)
[2019-06-13 07:19] LABS: #Lymphocytes 0.6 thou/uL (1.20-3.40); #Monocytes 1.2 thou/uL (0.11-0.59); #Neutrophils 10.4 thou/uL (1.40-6.50); %Basophils 0.1 % (0.0-1.0); %Eosinophils 0.2 % (0.0-10.0); %Lymphocytes 4.7 % (21.0-51.0); %Monocytes 9.7 % (0.0-10.0); %Neutrophils 85.3 % (42.0-75.0); Hemoglobin 9.4 g/dL (12.0-16.0); Mean Corpuscular HGB CONC 32.7 g/dL (32.0-36.0); Mean Corpuscular Hemoglobin 28.8 pg (27.0-31.0); Mean Corpuscular Volume 88.3 fL (78.0-98.0); Mean Platelet Volume 7.2 fL (7.4-10.4); Platelet Count 267 thou/uL (130-400); RBC Distribution Width 13.7 % (11.5-14.5); Red Blood Cell (RBC) Count 3.27 mill/uL (4.20-5.40); White Blood Cell (WBC) Count 12.1 thou/uL (4.8-10.8)
[2019-06-13 07:25] LABS: Anion Gap 15 mmol/L (10-20); BUN (Urea Nitrogen) 63 mg/dL (9.8-20.1); Calc. Creatinine Clearance 21 mL/min (70-130); Calcium 9.4 mg/dL (7.8-10.44); Carbon Dioxide 23 mmol/L (23-31); Chloride 95 mmol/L (98-107); Estimated GFR-MDRD 21; Glucose 144 mg/dL (83-110); Phosphorus 4.3 mg/dL (2.3-4.7); Sodium 128 mmol/L (136-145)
[2019-06-13] MEDS: Bisacodyl 5 MG TAB PO SCH (09:20)
[2019-06-13] MEDS: Famotidine 20 MG TAB PO SCH (09:20)
[2019-06-13] MEDS: Apixaban 2.5 MG TAB PO SCH ×2 (09:20→21:00)
[2019-06-13] MEDS: Calcium Carbonate 500 MG TAB PO SCH (09:21)
--- NOTE | 2019-06-13 11:25 | OP ---
DATE OF PROCEDURE: 06/11/2019 PROCEDURE PERFORMED: Right hip bipolar hemiarthroplasty. PREOPERATIVE DIAGNOSIS: Right hip femoral neck fracture. POSTOPERATIVE DIAGNOSIS: Right hip femoral neck fracture. ESTIMATED BLOOD LOSS: 150 mL. COMPLICATIONS: None. ANESTHESIA: General. IMPLANTS: DePuy size 7 cemented femoral stem with a 45 mm bipolar shell, +1.5. INDICATIONS: Ms. Galeas is an 88-year-old female, who fell and fractured her right femoral neck. She was indicated for hemiarthroplasty of the hip to restore the ability to mobilize and promote early mobilization. Risks have been reviewed, which do include instability of the hip, infection, pain, scarring, nerve or vascular injury, and others. DESCRIPTION OF PROCEDURE: Ms. Galeas was identified in the preoperative holding area. Her correct extremity was marked. She was carried to the operating room. She was positioned supine. General anesthesia was induced. A multidisciplinary time-out was performed. The right lower extremity was prepped and draped in sterile fashion. We began the procedure with a posterior approach to the hip. We dissected down through the subcutaneous tissues to the fascia, which was opened. We explored the underlying tissues. We released the piriformis and performed a capsulotomy. At this point, we removed the broken femoral head and neck fragments. We used an oscillating saw to perform a new osteotomy of the femoral neck. At this point, we cleared the acetabulum of any bony fragments. We then prepared the femoral canal. We entered the femoral canal and used our journal box inspector. We then lateralized. At this point, we reamed up to a size 7 reamer. We then broached from a size 2 to a size 7. The bone was very soft. We did not have a good fit and fill. We decided to proceed with cementing the femoral stem. We trialed off our 7 broach. A +1.5 gave the appropriate length. There was good stability of the hip. At this point, we mixed cement on the back table. We cleaned and dried the femoral canal. We then injected our cement and placed our stem. We held the stem in position until fully hardened. Next, we trialed once more. We then placed our final head and bipolar shell on the final stem. Again, the hip was reduced. It was very stable. We thoroughly irrigated with copious lavage. We then closed in layers starting with the short external rotators and capsule with #5 Ethibond suture. A sterile dressing was applied. The patient was taken to the recovery room in good condition without complication. Job ID: [id number]
[2019-06-13] MEDS ORDERED: Furosemide 100 MG/10 ML VIAL SLOW IVP SCH (12:15)
--- NOTE | 2019-06-13 14:52 | PRG ---
DATE OF SERVICE: 06/13/2019 This is Ritchie Flowers PA-C dictating a report for Colt Carlos DO. SUBJECTIVE: Ms. Galeas is an 88-year-old female, status post ground level fall with right hip fracture, status post ORIF of right hip fracture. The patient developed atrial fibrillation with RVR, adrenal insufficiency, urinary tract infection. Since yesterday, the patient's vital signs were stable, atrial fibrillation resolved, becomes sinus at the moment. Urinary tract infection treated with ciprofloxacin. However, last night, the patient showed sign of restless leg syndrom, and the patient's intake and urine output are poor. OBJECTIVE: GENERAL: Currently, the patient is lying in bed with no acute respiratory distress, but looks lethargic and fatigued. VITAL SIGNS: Heart rate is 81, blood pressure 108/49, respiratory rate is 26, and O2 saturation 96 on room air. LUNGS: Scattered rales bilaterally. HEART: Regular rate and rhythm. ABDOMEN: Soft and nondistended. EXTREMITIES: Neurovascularly intact x4. Postop dressing is clean, dry, intact. LABORATORY DATA: Sodium 128, potassium 5, creatinine 2.17. White count 12.1, hemoglobin 9.4. ASSESSMENT: 1. Status post ground level fall. 2. Right hip fracture, status post open reduction and internal fixation of right hip fracture. 3. Atrial fibrillation with RVR, resolved. 4. Adrenal insufficiency, treated with hydrocortisone. 5. Urinary tract infection, uncomplicated, treated. PLAN: Will be continue supportive care. Continue pain control. Encourage intake of nutrition by mouth. Discontinue hydrocortisone. Continue antibiotics for UTI. Encourage physical therapy and occupational therapy. Placement is pending. The patient was seen and evaluated with Dr. Carlos on round this morning. Job ID: [id number] [facility]
--- NOTE | 2019-06-13 15:05 | PDOC.CPN ---
- Subjective Date: 06/13/19 Time: 15:02 Interval history: Still confused. No chest pain. Urine output improved but still low. - Review of Systems ROS unobtainable: due to mental status - Objective Allergies/Adverse Reactions: Allergies Allergy/AdvReac Type Severity Reaction Status Date / Time codeine Allergy Verified 03/01/16 20:04 tramadol Allergy Verified 06/09/19 13:21 Visit Medications: Current Medications Acetaminophen (Tylenol) 1,000 mg PO Q6H PRN PRN Reason: MILD PAIN 1-3 Hydrocodone Bitart/Acetaminophen ([place] 5/325) 1 tab PO Q4H PRN PRN Reason: Moderate Pain (4-6) Last Admin: 06/13/19 14:38 Dose: 1 tab Apixaban (Eliquis) 2.5 mg PO BID [facility] Last Admin: 06/13/19 09:20 Dose: 2.5 mg Bisacodyl (Dulcolax) 10 mg PO DAILY [facility] Last Admin: 06/13/19 09:20 Dose: 10 mg Calcium Carbonate (Oscal-500) 500 mg PO DAILY [facility] Last Admin: 06/13/19 09:21 Dose: 500 mg Dextrose/Water (Dextrose 50%) 25 gm SLOW IVP PRN PRN PRN Reason: Hypoglycemia Famotidine (Pepcid) 20 mg PO DAILY [facility] Last Admin: 06/13/19 09:20 Dose: 20 mg Glucagon (Glucagon) 1 mg IM PRN PRN PRN Reason: Hypoglycemia Hydralazine HCl (Apresoline) 10 mg SLOW IVP Q4H PRN PRN Reason: SBP > 170 or DBP > 100 Dextrose/Water (D5w) 1,000 mls @ 0 mls/hr IV .Q0M PRN PRN Reason: Hypoglycemia Amiodarone HCl 450 mg/ (Dextrose/Water) 259 mls @ 0 mls/hr IVPB INF [facility]; Protocol Last Admin: 06/13/19 03:26 Dose: 259 mls Norepinephrine Bitartrate (Levophed) 250 mls @ 0 mls/hr IVPB INF [facility]; Protocol Ciprofloxacin/Dextrose 200 mg/ (Device) 100 mls @ 100 mls/hr IVPB 0600,2000 [facility] Stop: 06/14/19 06:59 Insulin Human Lispro (Humalog) 0 units SC .MODERATE SLIDING SC PRN; Protocol PRN Reason: MODERATE SLIDING SCALE Ondansetron HCl (Zofran) 4 mg IVP Q6H PRN PRN Reason: Nausea Ropinirole HCl (Requip) 2 mg PO Q4H PRN PRN Reason: RESTLESS LEG/BODY Last Admin: 06/13/19 09:23 Dose: 2 mg Sodium Chloride (Flush - Normal Saline) 10 ml IVF PRN PRN PRN Reason: Saline Flush Vital Signs & Weight: Vital Signs Temp Pulse Pulse BP BP Pulse Ox Pulse Ox 06/13/19 12:00 98.8 F 06/13/19 09:32 90 82 167/114 H 129/63 95 06/13/19 08:00 98.9 F 97 06/13/19 04:00 98.3 F Pulse Ox 06/13/19 12:00 06/13/19 09:32 97 06/13/19 08:00 06/13/19 04:00 Admit Weight 163 lb Weight 163 lb - Physical Exam General: no apparent distress HEENT: mucus membranes moist Neck: supple neck Cardiac: regular rate and rhythm Lungs: normal breath sounds Neuro: no lateralizing findings Abdomen: active bowel sounds Extremities: 1+ LE edema Skin: clear Musculoskeletal: no fluid collection, pain in joint - Labs Result Diagrams: 06/13/19 06:32 06/13/19 06:32 Troponin/CKMB CK-MB (CK-2) 4.9 ng/mL (0-6.6) 06/11/19 17:04 Troponin I 0.096 ng/mL (< 0.028) H 06/11/19 17:04 - Telemetry Sinus rhythms and dysrhythmias: sinus rhythm - Assessment/Plan Assessment/Plan: 1. Afib RVR, converted to sinus overnight. 2. Spontaneous hip fracture s/p ORIF 3. Hx of TAVR 4. Confusion. 5. Hypotension, resolved. 6. UTI, proteus. PLAN: - Continue to diurese with IV lasix. \ - Creatinine has likely reached its highest point nd I expect it to start coming down. - Continue amiodarone drip. - Continue Eliquis for full anticoauglation now. - Cipro for proteus UTI. - May transfer to telemetry, room close to nursing station ideally.
[2019-06-13] MEDS: Ciprofloxacin Lactate/D5W 200 MG in Premix Bag 1 BAG IVPB SCH (20:23)
--- NOTE | 2019-06-13 23:04 | PRG ---
DATE OF SERVICE: 06/13/2019 SUBJECTIVE: The patient remains on the critical care unit. She was admitted status post delayed presentation of a fall in which she sustained a right hip fracture. She underwent open reduction and internal fixation of her hip fracture, which she tolerated well. Postoperatively, she did develop atrial fibrillation with rapid ventricular response, which has since converted to sinus rhythm. Per report, the patient today had less agitation, though at the time of my visit, the patient was repetitive and not following commands. Nurses report this started sometime during the day. PHYSICAL EXAMINATION: VITAL SIGNS: Stable. The patient is afebrile. Rhythm is sinus with a rate of 85. GENERAL: The patient is in bed. She is moving her legs, which has been seen before and family verifies it to part of her restless legs syndrome. She appears calm though when I ask any question, she only states her date of and the nurse reports that this has been consistent throughout her shift. LUNGS: Clear to auscultation with nonlabored respirations. HEART: Regular rate and rhythm. ABDOMEN: Soft without tenderness with active bowel sounds. EXTREMITIES: Lower extremities have 1 to 2+ pitting edema. ASSESSMENT: 1. Status post ground level fall. 2. Status post open reduction and internal fixation of right hip fracture. 3. Atrial fibrillation with rapid ventricular response, resolved. 4. Adrenal insufficiency, treated with hydrocortisone, stable. 5. Urinary tract infection, under treatment. PLAN: Plan will be to continue supportive care. She is being diuresed per Cardiology's instructions. She has also remained on her amiodarone drip. The patient is tolerating p.o. and is able to take her pills, so she will likely be transitioned to orals tomorrow. The patient also has been cleared to transfer to [facility], but there is no bed available at this time. Job ID: [id number]
--- NOTE | 2019-06-13 23:34 | CON ---
DATE OF CONSULTATION: CONSULTING PHYSICIAN: Charity Velasquez MD REQUESTING PHYSICIAN: Sung Ann MD REASON FOR CONSULTATION: Acute kidney injury. IMPRESSION: Acute kidney injury/acute tubular necrosis disease, hemodynamically mediated in the context of hypotension compounded by the presence of nonsteroidal anti-inflammatory drugs in the heart system. PLAN: 1. I do agree with discontinuation of nonsteroidal anti-inflammatory drugs. 2. Renally dose all medications. 3. Hemodynamic maintenance and avoid hypotension. 4. There is no need for diuretics at this point unless patient begins to have respiratory distress and hypovolemia. The patient seems to be euvolemic at this point. 5. Renally dose all medications and avoid potentially nephrotoxic agents. 6. Hopefully this renal function will stabilize and begin the process of post acute tubular necrosis recovery. HISTORY OF PRESENT ILLNESS: History is that of an 88-year-old female patient with intractable hip pain, noted to have hip fracture, did undergo hip replacement. The patient noted with a baseline creatinine of above 1.1. However, the patient has suffered hypotensive episode on the , after which the patient's renal function ever since then has been deteriorated. This is more or less in keeping with hemodynamically mediated acute tubular necrosis. Of note, the patient has been on ibuprofen even at the time when she suffered the hypotensive episodes. As a result of these findings, decision has been taken to involve Renal in the management of this case. PAST MEDICAL HISTORY: Significant for hypertension, chronic pain, restless legs, diabetes, and valve replacement. MEDICATIONS: Reviewed and as documented on [employer]. ALLERGIES: TO CODEINE AND TRAMADOL. FAMILY HISTORY: Significant for diabetes and hypertension. SOCIAL HISTORY: No alcohol, no tobacco, no illicit drug use. REVIEW OF SYSTEMS: As documented in the body of history. All the other systems were reviewed and found not to be significantly related to presenting illness. PHYSICAL EXAMINATION: GENERAL: The patient was found not to be in any obvious distress. Hemodynamically stable with blood pressure in the 150s. HEENT: Unremarkable. CARDIOVASCULAR: First and second heart sounds were heard. RESPIRATORY: Clear to auscultation. DIGESTIVE SYSTEM: Revealed a benign abdomen. EXTREMITIES: No peripheral edema. SKIN: No new gross rash. LYMPHATICS: No peripheral lymphadenopathy. SUMMARY: An 88-year-old female patient, who presented here with hip pain, suffered hypotensive episodes, now experiencing deterioration in renal function. Thank you for this consultation. We will follow with you. Job ID: [id number]
[2019-06-14] MEDS: HYDROcodone/Acetaminophen 5/325 mg Tablet PO PRN ×4 (01:38→20:39)
[2019-06-14] MEDS: rOPINIRole HCl 2 MG TAB PO PRN ×2 (02:28→08:55)
[2019-06-14] MEDS: hydrALAZINE 20 MG/ML VIAL SLOW IVP PRN (03:04)
[2019-06-14] MEDS ORDERED: Morphine 2 MG/ML SYRINGE SLOW IVP PRN (03:47)
[2019-06-14 04:13] LABS: #Eosinphils 0.2 thou/uL (0.0-0.7); #Lymphocytes 1.4 thou/uL (1.20-3.40); #Monocytes 1.5 thou/uL (0.11-0.59); #Neutrophils 9.9 thou/uL (1.40-6.50); %Basophils 0.2 % (0.0-1.0); %Eosinophils 1.4 % (0.0-10.0); %Lymphocytes 10.6 % (21.0-51.0); %Monocytes 11.6 % (0.0-10.0); %Neutrophils 76.2 % (42.0-75.0); Hemoglobin 9.9 g/dL (12.0-16.0); Mean Corpuscular HGB CONC 32.6 g/dL (32.0-36.0); Mean Corpuscular Hemoglobin 28.8 pg (27.0-31.0); Mean Corpuscular Volume 88.4 fL (78.0-98.0); Platelet Count 293 thou/uL (130-400); RBC Distribution Width 13.7 % (11.5-14.5); Red Blood Cell (RBC) Count 3.44 mill/uL (4.20-5.40); White Blood Cell (WBC) Count 12.9 thou/uL (4.8-10.8)
[2019-06-14 04:40] LABS: Anion Gap 15 mmol/L (10-20); BUN (Urea Nitrogen) 72 mg/dL (9.8-20.1); Calc. Creatinine Clearance 20 mL/min (70-130); Calcium 9.5 mg/dL (7.8-10.44); Carbon Dioxide 23 mmol/L (23-31); Chloride 93 mmol/L (98-107); Estimated GFR-MDRD 20; Glucose 98 mg/dL (83-110); Magnesium 2.2 mg/dL (1.6-2.6); Phosphorus 4.6 mg/dL (2.3-4.7); Sodium 126 mmol/L (136-145)
[2019-06-14] MEDS ORDERED: Sodium Chloride 0.9% 500 ML IV SCH (04:45)
[2019-06-14] MEDS: Ciprofloxacin Lactate/D5W 200 MG in Premix Bag 1 BAG IVPB SCH (05:44)
[2019-06-14] MEDS ORDERED: Morphine 2 MG/ML SYRINGE SLOW IVP SCH (06:30)
[2019-06-14] MEDS ORDERED: Sodium Chloride 308 MEQ in Sterile Water Injection 923 ML IV SCH (08:15)
[2019-06-14 08:39] LABS: Band 2 % (5-11); Lymphocytes 12 % (21-51); Monocytes 12 % (0-10); Reactive Lymphocytes 2 % (0-10)
[2019-06-14 08:41] LABS: Platelet Morphology Comment Appears Adequate
[2019-06-14 08:42] LABS: Polychromasia SLIGHT = 2-3 cells (100X) (0-2/hpf)
[2019-06-14] MEDS: Famotidine 20 MG TAB PO SCH (08:56)
[2019-06-14] MEDS: Senokot S 8.6-50 MG TAB PO SCH ×2 (08:56→20:42)
[2019-06-14] MEDS: Apixaban 2.5 MG TAB PO SCH ×2 (08:56→20:41)
[2019-06-14] MEDS: Polyethylene Glycol 3350 17 GM Packet PO SCH (08:56)
[2019-06-14] MEDS: Calcium Carbonate 500 MG TAB PO SCH (08:57)
[2019-06-14] MEDS: Bisacodyl 5 MG TAB PO SCH (08:57)
[2019-06-14] MEDS ORDERED: Pramipexole Di-HCl 0.25 MG TAB PO SCH ×2 (09:00)
[2019-06-14 09:03] LABS: MDiff Complete? YES
[2019-06-14 09:05] LABS: Neutrophil 72 % (42-75)
[2019-06-14] MEDS: Amiodarone 450 MG in Dextrose 5% in Water 250 ML IVPB SCH (09:08)
[2019-06-14] MEDS ORDERED: Sodium Chloride 1 GM TAB PO SCH (09:15)
--- NOTE | 2019-06-14 11:22 | RAD ---
EXAM: Single view of the abdomen HISTORY: Dobbhoff tube placement COMPARISON: None FINDINGS: Single view of the abdomen shows a nonspecific, nonobstructive bowel gas pattern. There is a Dobbhoff tube with its tip in the stomach. No suspicious calcifications are seen. Degenerative changes are seen in the spine. IMPRESSION: Unremarkable exam
[2019-06-14 15:36] LABS: Anion Gap 13 mmol/L (10-20); BUN (Urea Nitrogen) 73 mg/dL (9.8-20.1); Calc. Creatinine Clearance 22 mL/min (70-130); Carbon Dioxide 24 mmol/L (23-31); Chloride 100 mmol/L (98-107); Estimated GFR-MDRD 23; Potassium 4.2 mmol/L (3.5-5.1); Sodium 133 mmol/L (136-145)
[2019-06-14 15:37] LABS: Glucose 162 mg/dL (83-110); Magnesium 2.2 mg/dL (1.6-2.6); Phosphorus 5.1 mg/dL (2.3-4.7)
--- NOTE | 2019-06-14 15:56 | PRG ---
DATE OF SERVICE: 06/14/2019 SUBJECTIVE: Ms. Galeas is an 88-year-old woman who is postop day #3, status post right hip hemiarthroplasty. She continues to have intermittent episodes of restless leg. Additionally, she has been somewhat somnolent this morning. Urinary output has been adequate. She does however awake to deep voice. Appetite has been poor over the last 2 days. OBJECTIVE: VITAL SIGNS: Her vital signs today include blood pressure 100/73, pulse 75, respiratory rate is 26, and maximum temperature in last 24 hours is 99.1 degrees Fahrenheit, and oxygen saturation is 100% on 2 L by nasal cannula oxygen. HEART: Reveals regular rate and rhythm. LUNGS: Clear to auscultation bilaterally. Breathing, regular and nonlabored. ABDOMEN: Soft, nontender, and nondistended. NEUROLOGIC: Reveals no focal deficits present. LABORATORY FINDINGS: Today include a CBC with 12,900 white blood cells, hemoglobin and hematocrit stable at 9.9 and 30.4 respectively. Platelet count is 293,000. Metabolic profile; sodium 126, potassium is 5.0, chloride is 93, bicarb is 23, BUN 72, creatinine is 2.28, glucose is 105. IMPRESSIONS: 1. Postoperative day #3, status post right hip hemiarthroplasty. 2. Acute hyponatremia. 3. Acute kidney injury, multifactorial. 4. Acute metabolic encephalopathy. PLAN: 1. Correct abnormal electrolytes. To that end, we will initiate 1.8% normal saline peripherally. Additionally, given the patient's poor appetite, discussed with family and we will place a feeding tube today for temporary enteral nutritional supplementation. 2. Continue to monitor the patient's urinary output as endpoint of our resuscitation as the acute kidney injury resolves. 3. Continue to avoid nephrotoxic agents and adjust all medications to current GFR. 4. We will revise all the medications on file and minimize sedatives. 5. Increase activity per Physical and Occupational therapy. 6. Above findings and plan has been discussed with the patient's family at bedside, who indicated understanding information given. I have answered their questions. Job ID: [id number]
--- NOTE | 2019-06-14 17:55 | PRG ---
DATE OF SERVICE: 06/14/2019 SUBJECTIVE: The patient is seen and examined, noted with the following vital signs. OBJECTIVE: VITAL SIGNS: Heart rate of 85, hemodynamically stable. HEENT: Unremarkable. CARDIOVASCULAR SYSTEM: First and second heart sounds were heard. RESPIRATORY SYSTEM: Clear to auscultation. DIGESTIVE SYSTEM: Revealed a benign abdomen. EXTREMITIES: No peripheral edema. SKIN: No new gross rash. LYMPHATICS: No peripheral lymphadenopathy. LABORATORY INVESTIGATION: Showed a creatinine of 2.28, sodium of 126. IMPRESSION: 1. Hemodynamically mediated acute tubular necrosis. 2. Hyponatremia, query type, possibly syndrome of inappropriate antidiuretic hormone secretion. PLAN: 1. Urine chemistry in terms of urine sodium and urine osmolality to identify what kind of hyponatremia . 2. Continue current renal supportive measures. 3. Continue to renally dose all medications. 4. Creatinine likely to get worse before begins to get better. 5. Further management to be dependent on the clinical course. Job ID: [id number]
--- NOTE | 2019-06-14 18:29 | PDOC.CPN ---
- Subjective Date: 06/14/19 Time: 18:29 Interval history: She remains confused. - Review of Systems ROS unobtainable: due to mental status - Objective Allergies/Adverse Reactions: Allergies Allergy/AdvReac Type Severity Reaction Status Date / Time codeine Allergy Verified 03/01/16 20:04 tramadol Allergy Verified 06/09/19 13:21 Visit Medications: Current Medications Acetaminophen (Tylenol) 1,000 mg PO Q6H PRN PRN Reason: MILD PAIN 1-3 Hydrocodone Bitart/Acetaminophen ([place] 5/325) 1 tab PO Q4H PRN PRN Reason: Moderate Pain (4-6) Last Admin: 06/14/19 16:41 Dose: 1 tab Apixaban (Eliquis) 2.5 mg PO BID [facility] Last Admin: 06/14/19 08:56 Dose: 2.5 mg Bisacodyl (Dulcolax) 10 mg PO DAILY [facility] Last Admin: 06/14/19 08:57 Dose: 10 mg Calcium Carbonate (Oscal-500) 500 mg PO DAILY [facility] Last Admin: 06/14/19 08:57 Dose: 500 mg Dextrose/Water (Dextrose 50%) 25 gm SLOW IVP PRN PRN PRN Reason: Hypoglycemia Famotidine (Pepcid) 20 mg PO DAILY [facility] Last Admin: 06/14/19 08:56 Dose: 20 mg Glucagon (Glucagon) 1 mg IM PRN PRN PRN Reason: Hypoglycemia Hydralazine HCl (Apresoline) 10 mg SLOW IVP Q4H PRN PRN Reason: SBP > 170 or DBP > 100 Last Admin: 06/14/19 03:04 Dose: 10 mg Dextrose/Water (D5w) 1,000 mls @ 0 mls/hr IV .Q0M PRN PRN Reason: Hypoglycemia Insulin Human Lispro (Humalog) 0 units SC .MODERATE SLIDING SC PRN; Protocol PRN Reason: MODERATE SLIDING SCALE Last Admin: 06/13/19 16:59 Dose: 4 unit Lactulose (Lactulose) 30 gm PO DAILY [facility] Last Admin: 06/14/19 08:56 Dose: 30 gm Melatonin (Melatonin) 3 mg PO HS [facility] Ondansetron HCl (Zofran) 4 mg IVP Q6H PRN PRN Reason: Nausea Polyethylene Glycol (Miralax) 17 gm PO DAILY [facility] Last Admin: 06/14/19 08:56 Dose: 17 gm Ropinirole HCl (Requip) 2 mg PO Q6H PRN PRN Reason: RESTLESS LEG/BODY Ropinirole HCl (Requip) 2 mg PO HS [facility] Senna/Docusate Sodium (Senokot S) 1 tab PO BID [facility] Last Admin: 06/14/19 08:56 Dose: 1 tab Sodium Chloride (Flush - Normal Saline) 10 ml IVF PRN PRN PRN Reason: Saline Flush Sodium Chloride (Sodium Chloride) 1 gm PO BID [facility] Vital Signs & Weight: Vital Signs Temp Pulse Pulse BP BP Pulse Ox Pulse Ox 06/14/19 16:00 98.6 F 06/14/19 13:00 75 80 92/76 100/73 99 06/14/19 12:00 98.5 F 06/14/19 11:30 94 L 06/14/19 08:00 100 06/14/19 07:00 98.4 F Pulse Ox 06/14/19 16:00 06/14/19 13:00 99 06/14/19 12:00 06/14/19 11:30 06/14/19 08:00 06/14/19 07:00 Admit Weight 163 lb Weight 163 lb - Physical Exam General: other (Confused but in no distress.) HEENT: mucus membranes moist Neck: supple neck Cardiac: regular rate and rhythm Lungs: normal breath sounds Neuro: no lateralizing findings Abdomen: active bowel sounds Extremities: no edema Skin: clear Musculoskeletal: normal range of motion - Labs Result Diagrams: 06/14/19 03:18 06/14/19 15:07 Troponin/CKMB CK-MB (CK-2) 4.9 ng/mL (0-6.6) 06/11/19 17:04 Troponin I 0.096 ng/mL (< 0.028) H 06/11/19 17:04 - Telemetry Sinus rhythms and dysrhythmias: sinus rhythm - Assessment/Plan Assessment/Plan: 1. Afib RVR, remains in sinus 2. Spontaneous hip fracture s/p ORIF 3. Hx of TAVR 4. Confusion. 5. Hypotension, resolved. 6. UTI, proteus. PLAN: - Creatinine slowly improving. - Will stop amiodarone. - Continue Eliquis for full anticoauglation now. - Cipro for proteus UTI. - Pt still confused but improving. Neurology consultation as she has this shaking that is getting worse now. - Critical Care Time Critical care time (mins): 30
[2019-06-14] MEDS: Hydrocortisone Sod Succ/PF 100 mg/2 ml Vial IVP SCH (20:40)
[2019-06-14] MEDS: Sodium Chloride 1 GM TAB PO SCH (20:42)
[2019-06-14] MEDS: rOPINIRole HCl 2 MG TAB PO SCH (21:50)
[2019-06-14] MEDS: Melatonin 3 MG TAB PO SCH (21:50)
--- NOTE | 2019-06-14 23:36 | PRG ---
DATE OF SERVICE: 06/14/2019 SUBJECTIVE: The patient remains in the critical care unit. The patient is postop day #3, status post right hip hemiarthroplasty. The patient is currently oriented to person only at this time. The patient continues to have adequate urinary output. OBJECTIVE: VITAL SIGNS: Stable, afebrile. GENERAL: Elderly female, awake, alert to person only. RESPIRATORY: Bilateral breath sounds clear with no wheezing, rales, or rhonchi. CARDIAC: Regular rate. Regular rhythm. NEUROLOGIC: Oriented to person only. IMPRESSION: 1. Postop day #3, status post right hip hemiarthroplasty. 2. Acute hyponatremia. 3. Acute kidney injury, multifactorial. 4. Acute metabolic encephalopathy. PLAN: Correct abnormal electrolytes and repeat labs in the morning. Continue to monitor urinary output closely. Continue to avoid nephrotoxic agents. Adjust all medications to current GFR. We will increase activity in physical and occupational therapy. Job ID: [id number]
[2019-06-15] MEDS: Hydrocortisone Sod Succ/PF 100 mg/2 ml Vial IVP SCH ×4 (00:46→21:05)
[2019-06-15] MEDS: Acetaminophen 500 MG TAB PO PRN ×2 (01:43→14:42)
[2019-06-15 04:25] LABS: Band 5 % (5-11); Hemoglobin 8.1 g/dL (12.0-16.0); Hypochromia SLIGHT = 6-15 cells (100X) (0-5/hpf); Lymphocytes 3 % (21-51); MDiff Complete? YES; Mean Corpuscular HGB CONC 31.2 g/dL (32.0-36.0); Mean Corpuscular Hemoglobin 27.6 pg (27.0-31.0); Mean Corpuscular Volume 88.7 fL (78.0-98.0); Mean Platelet Volume 7.2 fL (7.4-10.4); Monocytes 1 % (0-10); Neutrophil 91 % (42-75); Platelet Count 264 thou/uL (130-400); Platelet Morphology Comment Appears Adequate; RBC Distribution Width 13.7 % (11.5-14.5); Red Blood Cell (RBC) Count 2.93 mill/uL (4.20-5.40); White Blood Cell (WBC) Count 7.9 thou/uL (4.8-10.8)
[2019-06-15 04:32] LABS: Anion Gap 14 mmol/L (10-20); BUN (Urea Nitrogen) 78 mg/dL (9.8-20.1); Calc. Creatinine Clearance 25 mL/min (70-130); Calcium 8.8 mg/dL (7.8-10.44); Carbon Dioxide 20 mmol/L (23-31); Chloride 101 mmol/L (98-107); Estimated GFR-MDRD 27; Glucose 167 mg/dL (83-110); Magnesium 2.2 mg/dL (1.6-2.6); Phosphorus 4.9 mg/dL (2.3-4.7); Potassium 4.3 mmol/L (3.5-5.1); Sodium 131 mmol/L (136-145)
[2019-06-15] MEDS: HYDROcodone/Acetaminophen 5/325 mg Tablet PO PRN ×3 (06:22→21:03)
[2019-06-15] MEDS: Apixaban 2.5 MG TAB PO SCH ×2 (08:30→21:04)
[2019-06-15] MEDS: Calcium Carbonate 500 MG TAB PO SCH (08:31)
[2019-06-15] MEDS: Famotidine 20 MG TAB PO SCH (08:31)
[2019-06-15] MEDS: Sodium Chloride 1 GM TAB PO SCH ×4 (08:31→21:04)
[2019-06-15] MEDS: HumaLOG 300 UNITS/3 ML VIAL SC PRN (08:32)
[2019-06-15] MEDS ORDERED: Sodium Chloride 0.9% 1,000 ML IV SCH (08:45)
[2019-06-15] MEDS: Polyethylene Glycol 3350 17 GM Packet PO SCH (10:24)
[2019-06-15] MEDS: Bisacodyl 5 MG TAB PO SCH (10:24)
[2019-06-15] MEDS: Senokot S 8.6-50 MG TAB PO SCH ×2 (10:24→21:05)
--- NOTE | 2019-06-15 11:45 | PRG ---
DATE OF SERVICE: 06/15/2019 SUBJECTIVE: Ms. Galeas is an 88-year-old woman, postop day #4 today, status post right hip hemiarthroplasty. The patient continues to have intermittent episodes of restless leg, which is less frequent compared to yesterday. She is awake and alert this morning and interactive with family at bedside. She did consume a fair amount of her breakfast. She slept well last night. Urinary output is improving. OBJECTIVE: VITAL SIGNS: Include blood pressure of 145/79, pulse is 74, respiratory rate is 21, maximum temperature on last 24 hours is 99.1 degrees Fahrenheit, and oxygen saturation currently is 100% on 2 L by nasal cannula oxygen. HEART: Reveals regular rate and rhythm. No murmurs or gallops auscultated. LUNGS: Clear to auscultation bilaterally. Her breathing is regular and nonlabored. ABDOMEN: Soft, nontender, and nondistended. NEUROLOGIC: Reveals no focal deficits present. LABORATORY FINDINGS: Today include a CBC with 7900 white blood cells improved from 12,900 yesterday, hemoglobin and hematocrit 8.1 and 26.0 respectively, platelet count is 264,000. Metabolic profile; sodium 131, down from 133 yesterday; potassium is 4.3; chloride is 101; bicarb is 20; BUN is 78; creatinine is improving at 1.79 in contrast to 2.03 yesterday. Glucose is 167, magnesium is 2.2, and phosphorus is 4.9. IMPRESSION: 1. Postop day #4, status post right hip hemiarthroplasty. 2. Resolving acute metabolic encephalopathy. 3. Resolving acute kidney injury. 4. Stable acute hyponatremia. PLAN: 1. Encourage oral intake and continue nocturnal tube feeds. 2. We will consider increasing total fluid intake if the patient's oral intake is not adequate and monitor urinary output as endpoint of our resuscitation. 3. Increase activity per Physical and Occupational Therapy. 4. The patient is certainly hemodynamically stable for transfer to telemetry. 5. Above findings and plan discussed with the patient and family at bedside. 6. They indicated understanding information given. Job ID: [id number]
--- NOTE | 2019-06-15 12:23 | PRG ---
DATE OF SERVICE: 06/15/2019 SUBJECTIVE: The patient is seen and examined, seems to be feeling much better. OBJECTIVE: HEENT: Unremarkable. Hemodynamically stable. CARDIOVASCULAR SYSTEM: First and second heart sounds were heard. RESPIRATORY SYSTEM: Clear to auscultation. DIGESTIVE SYSTEM: Revealed a benign abdomen. EXTREMITIES: No peripheral edema. SKIN: No new gross rash. LYMPHATICS: No peripheral lymphadenopathy. LABORATORY INVESTIGATION: Significant for creatinine down to 1.79 and sodium 131. IMPRESSION: 1. Acute on chronic kidney disease, seems to be improving with renal supportive measures. 2. Mild hyponatremia. PLAN: Continue current renal supportive measures. Job ID: [id number]
--- NOTE | 2019-06-15 17:42 | PDOC.CPN ---
- Subjective Date: 06/15/19 Time: 17:40 Interval history: Significantly improved. Her mentation is better. No chest pain, tightness, pressure. Still confused but not agitated. - Review of Systems ROS unobtainable: due to mental status - Objective Allergies/Adverse Reactions: Allergies Allergy/AdvReac Type Severity Reaction Status Date / Time codeine Allergy Verified 03/01/16 20:04 tramadol Allergy Verified 06/09/19 13:21 Visit Medications: Current Medications Acetaminophen (Tylenol) 1,000 mg PO Q6H PRN PRN Reason: MILD PAIN 1-3 Last Admin: 06/15/19 14:42 Dose: 1,000 mg Hydrocodone Bitart/Acetaminophen ([place] 5/325) 1 tab PO Q4H PRN PRN Reason: Moderate Pain (4-6) Last Admin: 06/15/19 15:51 Dose: 1 tab Apixaban (Eliquis) 2.5 mg PO BID [facility] Last Admin: 06/15/19 08:30 Dose: 2.5 mg Bisacodyl (Dulcolax) 10 mg PO DAILY [facility] Last Admin: 06/15/19 10:24 Dose: Not Given Calcium Carbonate (Oscal-500) 500 mg PO DAILY [facility] Last Admin: 06/15/19 08:31 Dose: 500 mg Dextrose/Water (Dextrose 50%) 25 gm SLOW IVP PRN PRN PRN Reason: Hypoglycemia Famotidine (Pepcid) 20 mg PO DAILY [facility] Last Admin: 06/15/19 08:31 Dose: 20 mg Glucagon (Glucagon) 1 mg IM PRN PRN PRN Reason: Hypoglycemia Hydralazine HCl (Apresoline) 10 mg SLOW IVP Q4H PRN PRN Reason: SBP > 170 or DBP > 100 Last Admin: 06/14/19 03:04 Dose: 10 mg Hydrocortisone Sodium Succinate (Solu-Cortef) 25 mg IVP Q6H [facility] Last Admin: 06/15/19 13:46 Dose: 25 mg Dextrose/Water (D5w) 1,000 mls @ 0 mls/hr IV .Q0M PRN PRN Reason: Hypoglycemia Insulin Human Lispro (Humalog) 0 units SC .MODERATE SLIDING SC PRN; Protocol PRN Reason: MODERATE SLIDING SCALE Last Admin: 06/15/19 08:32 Dose: 2 unit Melatonin (Melatonin) 3 mg PO HS [facility] Last Admin: 06/14/19 21:50 Dose: 3 mg Ondansetron HCl (Zofran) 4 mg IVP Q6H PRN PRN Reason: Nausea Polyethylene Glycol (Miralax) 17 gm PO DAILY [facility] Last Admin: 06/15/19 10:24 Dose: Not Given Ropinirole HCl (Requip) 2 mg PO Q6H PRN PRN Reason: RESTLESS LEG/BODY Ropinirole HCl (Requip) 2 mg PO [facility] Last Admin: 06/14/19 21:50 Dose: 2 mg Senna/Docusate Sodium (Senokot S) 1 tab PO BID [facility] Last Admin: 06/15/19 10:24 Dose: Not Given Sodium Chloride (Flush - Normal Saline) 10 ml IVF PRN PRN PRN Reason: Saline Flush Sodium Chloride (Sodium Chloride) 1 gm PO TID [facility] Last Admin: 06/15/19 14:42 Dose: 1 gm Vital Signs & Weight: Vital Signs Temp Pulse BP BP Pulse Ox Pulse Ox Pulse Ox 06/15/19 15:23 98.5 F 06/15/19 12:00 98 06/15/19 09:19 74 134/86 143/70 H 100 100 06/15/19 08:00 100 06/15/19 07:10 100 06/15/19 06:00 98.3 F Admit Weight 163 lb Weight 172 lb 6.424 oz - Physical Exam General: appears well HEENT: normocephaly Neck: supple neck Cardiac: regular rate and rhythm, systolic murmur Lungs: normal breath sounds Neuro: no lateralizing findings Abdomen: active bowel sounds Extremities: 1+ LE edema Skin: clear Musculoskeletal: no pain - Labs Result Diagrams: 06/15/19 03:53 06/15/19 03:53 Troponin/CKMB CK-MB (CK-2) 4.9 ng/mL (0-6.6) 06/11/19 17:04 Troponin I 0.096 ng/mL (< 0.028) H 06/11/19 17:04 - Telemetry Sinus rhythms and dysrhythmias: sinus rhythm - Assessment/Plan Assessment/Plan: 1. Afib RVR, remains in sinus 2. Spontaneous hip fracture s/p ORIF 3. Hx of TAVR 4. Confusion. 5. Hypotension, resolved. 6. UTI, proteus. PLAN: - Creatinine continues to improve. - Continue Eliquis for full anticoauglation now. - Cipro for proteus UTI. - Remains in sinus. Will start PO amiodarone low dose.
--- NOTE | 2019-06-15 17:47 | EKG ---
Test Reason : Blood Pressure : / mmHG Vent. Rate : 132 BPM Atrial Rate : 129 BPM P-R Int : 000 ms QRS Dur : 118 ms QT Int : 318 ms P-R-T Axes : 000 -17 -34 degrees QTc Int : 471 ms Atrial fibrillation with rapid ventricular response Right bundle branch block Abnormal ECG No previous ECGs available Confirmed by DR. Fernando BULLOCK ([id number]) on 06/15/2019 5:47:04 PM Referred By: JEN Confirmed By:DR. Fernando BULLOCK
[2019-06-15] MEDS: Amiodarone 200 MG TAB PO SCH (21:05)
[2019-06-15] MEDS: Melatonin 3 MG TAB PO SCH (21:05)
[2019-06-15] MEDS: rOPINIRole HCl 2 MG TAB PO SCH (23:08)
[2019-06-16] MEDS: Acetaminophen 500 MG TAB PO PRN ×3 (01:47→16:42)
[2019-06-16] MEDS: Hydrocortisone Sod Succ/PF 100 mg/2 ml Vial IVP SCH ×4 (01:47→20:24)
--- NOTE | 2019-06-16 03:01 | PRG ---
DATE OF SERVICE: 06/15/2019 SUBJECTIVE: The patient remains in the intermediate care unit. The patient is postop day #4, status post right hip hemiarthroplasty. The patient is currently awake, much more alert, sitting up in the neuro chair. The patient is very interactive and communicating with family members. The patient voices no complaints or pain at this time. The patient is tolerating a diabetic diet. The patient continues to have good urinary output. OBJECTIVE: VITAL SIGNS: Stable, afebrile. GENERAL: Elderly female, sitting up in neuro chair, no acute distress. RESPIRATORY: Good inspiratory and expiratory effort, respirations are nonlabored. IMPRESSION: 1. Postop day #4, status post right hip hemiarthroplasty. 2. Resolving acute metabolic encephalopathy. 3. Resolving acute kidney injury. 4. Stable acute hyponatremia. PLAN: 1. Continue supportive care. 2. Encourage oral intake and continue nocturnal tube feeds. 3. Continue to monitor urinary output. 4. Continue to increase physical and occupational therapy. Job ID: [id number]
[2019-06-16 03:47] LABS: #Basophils 0.1 thou/uL (0.0-0.2); #Lymphocytes 0.2 thou/uL (1.20-3.40); #Monocytes 0.5 thou/uL (0.11-0.59); #Neutrophils 6.2 thou/uL (1.40-6.50); %Basophils 1.8 % (0.0-1.0); %Eosinophils 0.2 % (0.0-10.0); %Monocytes 7.5 % (0.0-10.0); %Neutrophils 87.5 % (42.0-75.0); Hemoglobin 8.4 g/dL (12.0-16.0); Mean Corpuscular HGB CONC 31.1 g/dL (32.0-36.0); Mean Corpuscular Hemoglobin 27.3 pg (27.0-31.0); Mean Corpuscular Volume 87.8 fL (78.0-98.0); Mean Platelet Volume 6.9 fL (7.4-10.4); Platelet Count 290 thou/uL (130-400); RBC Distribution Width 13.7 % (11.5-14.5); Red Blood Cell (RBC) Count 3.08 mill/uL (4.20-5.40); White Blood Cell (WBC) Count 7.1 thou/uL (4.8-10.8)
[2019-06-16 04:21] LABS: Anion Gap 12 mmol/L (10-20); BUN (Urea Nitrogen) 75 mg/dL (9.8-20.1); Calc. Creatinine Clearance 35 mL/min (70-130); Carbon Dioxide 24 mmol/L (23-31); Chloride 98 mmol/L (98-107); Estimated GFR-MDRD 36; Glucose 154 mg/dL (83-110); Magnesium 2.1 mg/dL (1.6-2.6); Phosphorus 3.5 mg/dL (2.3-4.7); Potassium 4.5 mmol/L (3.5-5.1); Sodium 129 mmol/L (136-145)
[2019-06-16] MEDS: HYDROcodone/Acetaminophen 5/325 mg Tablet PO PRN ×3 (06:03→13:44)
[2019-06-16] MEDS: Amiodarone 200 MG TAB PO SCH ×2 (07:58→21:27)
[2019-06-16] MEDS: Apixaban 2.5 MG TAB PO SCH ×2 (07:59→21:27)
[2019-06-16] MEDS: Famotidine 20 MG TAB PO SCH (08:01)
[2019-06-16] MEDS: Calcium Carbonate 500 MG TAB PO SCH (08:05)
[2019-06-16] MEDS: Bisacodyl 5 MG TAB PO SCH (08:05)
[2019-06-16] MEDS: Polyethylene Glycol 3350 17 GM Packet PO SCH (08:05)
[2019-06-16] MEDS: Senokot S 8.6-50 MG TAB PO SCH ×2 (08:06→21:27)
[2019-06-16] MEDS: Sodium Chloride 1 GM TAB PO SCH ×3 (08:07→21:27)
[2019-06-16] MEDS ORDERED: Sodium Chloride 308 MEQ in Sterile Water Injection 923 ML IV SCH (08:15)
[2019-06-16] MEDS: Ascorbic Acid 500 mg Chewable Tablet PO SCH ×2 (08:18→16:38)
[2019-06-16] MEDS: Ferrous Sulfate 325 MG TAB PO SCH ×2 (08:19→16:38)
--- NOTE | 2019-06-16 13:45 | PRG ---
DATE OF SERVICE: SUBJECTIVE: The patient was seen this morning sitting up in neuro chair with no signs of acute distress. She reported her pain is well controlled and she had no acute events overnight. States that she did not sleep well overnight as she was not able to get to sleep, but her mentation is normal. She does have waxing and waning, changes in her mentation secondary to delirium. The patient is tolerating a diet and has improved in her p.o. intake. OBJECTIVE: VITAL SIGNS: Temperature 97.5, pulse is 96, respirations 23, oxygen saturation 94% on 2 L nasal cannula, and blood pressure 166/81. GENERAL: Elderly female, sitting up in neuro chair with no signs of acute distress. PULMONARY: Equal chest rise and fall. No signs of acute respiratory distress. CARDIAC: Regular rate and rhythm. GI: Abdomen soft, nontender, and nondistended. EXTREMITIES: 2+ pulses in all extremities. Gross motor and sensations intact. No significant swelling noted. NEUROLOGIC: GCS is 14 to 15. LABORATORY FINDINGS: White count 7.1, hemoglobin 8.4, hematocrit 27.0, and platelets 290. Sodium 129, potassium 4.5, chloride 98, bicarb 24, BUN 75, creatinine 1.38, glucose 154, phosphorus 3.5, and magnesium 2.1. DIAGNOSTIC FINDINGS: There are no new diagnostic findings to report. ASSESSMENT: 1. Right hip pain with ambulation. 2. Right subcapital hip fracture, status post repair. 3. Urinary tract infection, status post 3 days of Cipro. 4. Atrial fibrillation with rapid ventricular response, resolved. 5. Acute adrenal insufficiency, stable. 6. Acute kidney injury, improving. 7. Acute hyponatremia, worse today. 8. Delirium. 9. History of restless legs syndrome, chronic back pain, diabetes, hypertension , and aortic valve replacement, currently on Eliquis. PLAN: Continue current diet and pain regimen. Continue physical and occupational therapy. The patient to be up in neuro chair 2 hours twice a day. We have discontinued the [place] today and we will stop tube feeds. Continue Suplena t.i.d. Continue Tucker for now. The patient was placed back on 1.8% saline at 50 an hour. We will repeat electrolytes this afternoon and make further recommendations. Continue sodium chloride tablets t.i.d. We have asked Case Management for working with the family for placement at acute rehab facility. [facility] has also spoken with the family to answer any further questions. This patient was seen and examined by Dr. Carlos and myself this morning during rounds. Job ID: [id number] MTDD
[2019-06-16 15:22] LABS: Anion Gap 11 mmol/L (10-20); BUN (Urea Nitrogen) 73 mg/dL (9.8-20.1); Calc. Creatinine Clearance 42 mL/min (70-130); Carbon Dioxide 26 mmol/L (23-31); Chloride 100 mmol/L (98-107); Estimated GFR-MDRD 40; Glucose 165 mg/dL (83-110); Magnesium 2.2 mg/dL (1.6-2.6); Phosphorus 3.1 mg/dL (2.3-4.7); Potassium 4.7 mmol/L (3.5-5.1); Sodium 132 mmol/L (136-145)
[2019-06-16] MEDS: rOPINIRole HCl 2 MG TAB PO PRN (16:39)
--- NOTE | 2019-06-16 19:16 | PDOC.CPN ---
- Subjective Date: 06/16/19 Time: 19:14 Interval history: doing well. Mentation similar to yesterday. No new issues. - Review of Systems ROS unobtainable: due to mental status - Objective Allergies/Adverse Reactions: Allergies Allergy/AdvReac Type Severity Reaction Status Date / Time codeine Allergy Verified 03/01/16 20:04 tramadol Allergy Verified 06/09/19 13:21 Visit Medications: Current Medications Acetaminophen (Tylenol) 1,000 mg PO Q6H PRN PRN Reason: MILD PAIN 1-3 Last Admin: 06/16/19 16:42 Dose: 1,000 mg Hydrocodone Bitart/Acetaminophen ([place] 5/325) 1 tab PO Q4H PRN PRN Reason: Moderate Pain (4-6) Last Admin: 06/16/19 13:44 Dose: 1 tab Amiodarone HCl (Cordarone) 200 mg PO BID [facility] Last Admin: 06/16/19 07:58 Dose: 200 mg Apixaban (Eliquis) 2.5 mg PO BID [facility] Last Admin: 06/16/19 07:59 Dose: 2.5 mg [facility] Last Admin: 06/16/19 16:38 Dose: 500 mg Bisacodyl (Dulcolax) 10 mg PO DAILY [facility] Last Admin: 06/16/19 08:05 Dose: Not Given Calcium Carbonate (Oscal-500) 500 mg PO DAILY [facility] Last Admin: 06/16/19 08:05 Dose: 500 mg Dextrose/Water (Dextrose 50%) 25 gm SLOW IVP PRN PRN PRN Reason: Hypoglycemia Famotidine (Pepcid) 20 mg PO DAILY [facility] Last Admin: 06/16/19 08:01 Dose: 20 mg Ferrous [facility] ([facility]) [facility] Last Admin: 06/16/19 16:38 Dose: 325 mg Glucagon (Glucagon) 1 mg IM PRN PRN PRN Reason: Hypoglycemia Hydralazine HCl (Apresoline) 10 mg SLOW IVP Q4H PRN PRN Reason: SBP > 170 or DBP > 100 Last Admin: 06/14/19 03:04 Dose: 10 mg Hydrocortisone Sodium Succinate (Solu-Cortef) 25 mg IVP Q6H [facility] Last Admin: 06/16/19 14:46 Dose: 25 mg Dextrose/Water (D5w) 1,000 mls @ 0 mls/hr IV .Q0M PRN PRN Reason: Hypoglycemia Sodium Chloride 308 meq/ (Sterile Water) 1,000 mls @ 50 mls/hr IV INF [facility] Last Admin: 06/16/19 10:18 Dose: 1,000 mls Insulin Human Lispro (Humalog) 0 units SC .MODERATE SLIDING SC PRN; Protocol PRN Reason: MODERATE SLIDING SCALE Last Admin: 06/15/19 08:32 Dose: 2 unit Melatonin (Melatonin) 3 mg PO [facility] Last Admin: 06/15/19 21:05 Dose: 3 mg Ondansetron HCl (Zofran) 4 mg IVP Q6H PRN PRN Reason: Nausea Polyethylene Glycol (Miralax) 17 gm PO DAILY [facility] Last Admin: 06/16/19 08:05 Dose: Not Given Ropinirole HCl (Requip) 2 mg PO Q6H PRN PRN Reason: RESTLESS LEG/BODY Last Admin: 06/16/19 16:39 Dose: 2 mg Ropinirole HCl (Requip) 2 mg PO [facility] Last Admin: 06/15/19 23:08 Dose: 2 mg Senna/Docusate Sodium (Senokot S) 1 tab PO BID [facility] Last Admin: 06/16/19 08:06 Dose: 1 tab Sodium Chloride (Flush - Normal Saline) 10 ml IVF PRN PRN PRN Reason: Saline Flush Last Admin: 06/16/19 08:06 Dose: 10 ml Sodium Chloride (Sodium Chloride) 1 gm PO TID [facility] Last Admin: 06/16/19 14:46 Dose: 1 gm Vital Signs & Weight: Vital Signs Temp Pulse Pulse BP BP Pulse Ox Pulse Ox 06/16/19 15:34 98.0 F 06/16/19 11:28 79 80 162/72 H 147/67 H 99 06/16/19 11:22 98.2 F 06/16/19 08:00 94 L 06/16/19 07:32 97.5 F L Pulse Ox 06/16/19 15:34 06/16/19 11:28 96 06/16/19 11:22 06/16/19 08:00 06/16/19 07:32 Admit Weight 163 lb Weight 189 lb 11.2 oz - Physical Exam General: appears well HEENT: mucus membranes moist Neck: supple neck Cardiac: regular rate and rhythm Lungs: clear to auscultation Neuro: grossly intact Abdomen: active bowel sounds Extremities: no edema Skin: clear Musculoskeletal: no fluid collection - Labs Result Diagrams: 06/16/19 03:31 06/16/19 14:47 Troponin/CKMB CK-MB (CK-2) 4.9 ng/mL (0-6.6) 06/11/19 17:04 Troponin I 0.096 ng/mL (< 0.028) H 06/11/19 17:04 - Telemetry Sinus rhythms and dysrhythmias: sinus rhythm - Assessment/Plan Assessment/Plan: 1. Afib RVR, remains in sinus 2. Spontaneous hip fracture s/p ORIF 3. Hx of TAVR 4. Confusion. Improved. 5. Hypotension, resolved. 6. UTI, proteus. PLAN: - Creatinine continues to improve. - Continue Eliquis for full anticoagulation now. - Cipro for proteus UTI. - Continue PO amiodarone load. - Ready for hospital discharge from cardiac perspective.
[2019-06-16] MEDS: rOPINIRole HCl 2 MG TAB PO SCH (21:26)
[2019-06-16] MEDS: Melatonin 3 MG TAB PO SCH (21:27)
--- NOTE | 2019-06-16 23:23 | PRG ---
DATE OF SERVICE: 06/16/2019 SUBJECTIVE: The patient was seen this evening during rounds, awake, alert, sitting up in hospital bed, in no acute distress. The patient reports her pain is well controlled at this time. The patient continues to tolerate her diet. The patient's urinary output remains adequate. The patient's family states that she did not use her incentive spirometer today as they forgot. The patient was encouraged and coached on using the incentive spirometer. The patient was only able to pull a little less than 500 mL. OBJECTIVE: VITAL SIGNS: Stable, afebrile. GENERAL: Elderly female, sitting up in hospital bed, awake, alert, no distress. PULMONARY: Equal chest rise and fall, no respiratory distress. CARDIAC: Regular rate, regular rhythm. ASSESSMENT: 1. Right hip pain with ambulation. 2. Right subcapital hip fractures, status post repair. 3. Urinary tract infection, status post three days of Cipro. 4. Atrial fibrillation with rapid ventricular response, resolved, remained in sinus rhythm. 5. Acute adrenal insufficiency, stable. 6. Acute kidney injury, improving. 7. Acute hyponatremia. 8. Delirium. 9. History of restless legs syndrome, chronic back pain, diabetes, hypertension, aortic valve replacement, currently on Eliquis. PLAN: Continue supportive care. Continue current diet and pain regimen. Continue to have physical and occupational therapy work with the patient. Continue to have the patient up in the neuro chair as much as possible during the day. We will also encourage using incentive spirometer while awake. Continue 1.8% saline at 50 mL an hour as the patient has been hyponatremic. The patient is pending placement to inpatient rehab. Job ID: [id number]
[2019-06-17] MEDS: Acetaminophen 500 MG TAB PO PRN ×2 (02:20→11:28)
[2019-06-17] MEDS: Hydrocortisone Sod Succ/PF 100 mg/2 ml Vial IVP SCH ×3 (02:35→12:22)
[2019-06-17] MEDS: rOPINIRole HCl 2 MG TAB PO PRN ×2 (02:42→11:28)
[2019-06-17 03:57] LABS: #Lymphocytes 0.5 thou/uL (1.20-3.40); #Monocytes 0.7 thou/uL (0.11-0.59); #Neutrophils 6.1 thou/uL (1.40-6.50); %Basophils 0.1 % (0.0-1.0); %Eosinophils 0.5 % (0.0-10.0); %Lymphocytes 6.7 % (21.0-51.0); %Monocytes 9.5 % (0.0-10.0); %Neutrophils 83.2 % (42.0-75.0); Hemoglobin 8.9 g/dL (12.0-16.0); Mean Corpuscular HGB CONC 30.8 g/dL (32.0-36.0); Mean Corpuscular Hemoglobin 27.2 pg (27.0-31.0); Mean Corpuscular Volume 88.3 fL (78.0-98.0); Mean Platelet Volume 6.7 fL (7.4-10.4); Platelet Count 358 thou/uL (130-400); RBC Distribution Width 14.1 % (11.5-14.5); Red Blood Cell (RBC) Count 3.26 mill/uL (4.20-5.40); White Blood Cell (WBC) Count 7.3 thou/uL (4.8-10.8)
[2019-06-17 04:17] LABS: Anion Gap 9 mmol/L (10-20); BUN (Urea Nitrogen) 58 mg/dL (9.8-20.1); Calc. Creatinine Clearance 57 mL/min (70-130); Calcium 9.3 mg/dL (7.8-10.44); Carbon Dioxide 28 mmol/L (23-31); Chloride 106 mmol/L (98-107); Estimated GFR-MDRD 58; Glucose 152 mg/dL (83-110); Magnesium 2.1 mg/dL (1.6-2.6); Phosphorus 2.8 mg/dL (2.3-4.7); Potassium 4.5 mmol/L (3.5-5.1); Sodium 138 mmol/L (136-145)
[2019-06-17] MEDS: HYDROcodone/Acetaminophen 5/325 mg Tablet PO PRN (07:19)
[2019-06-17] MEDS ORDERED: Lisinopril 5 MG TAB PO SCH (09:00)
[2019-06-17] MEDS: Bisacodyl 5 MG TAB PO SCH (09:11)
[2019-06-17] MEDS: Ferrous Sulfate 325 MG TAB PO SCH ×2 (09:12→18:29)
[2019-06-17] MEDS: Famotidine 20 MG TAB PO SCH (09:12)
[2019-06-17] MEDS: Calcium Carbonate 500 MG TAB PO SCH (09:12)
[2019-06-17] MEDS: Amiodarone 200 MG TAB PO SCH ×2 (09:12→20:25)
[2019-06-17] MEDS: Apixaban 2.5 MG TAB PO SCH ×2 (09:12→20:25)
[2019-06-17] MEDS: Senokot S 8.6-50 MG TAB PO SCH ×2 (09:13→20:25)
[2019-06-17] MEDS: Ascorbic Acid 500 mg Chewable Tablet PO SCH ×2 (09:13→18:29)
[2019-06-17] MEDS: Polyethylene Glycol 3350 17 GM Packet PO SCH (09:13)
[2019-06-17] MEDS: hydrALAZINE 20 MG/ML VIAL SLOW IVP PRN (14:06)
--- NOTE | 2019-06-17 14:51 | PDOC.CPN ---
- Subjective Date: 06/17/19 Time: 14:49 Interval history: She is much better today. She denies any chest pain, tightness, pressures, SOB. She remains in sinus. She worked with PT today. - Review of Systems General: denies: fever/chills, weight/appetite/sleep changes, night sweats, fatigue Respiratory: denies: cough, congestion, shortness of breath, exercise intolerance Cardiovascular: denies: chest pain, palpitation, edema, paroxysmal nocturnal dyspnea, orthopnea Gastrointestinal: denies: nausea, vomiting, diarrhea, constipation, abd pain, GI bleeding Musculoskeletal: denies: pain, tenderness, stiffness, swelling, arthritis/ arthralgias Neurological: denies: numbness, syncope, seizure, weakness - Objective Allergies/Adverse Reactions: Allergies Allergy/AdvReac Type Severity Reaction Status Date / Time codeine Allergy Verified 03/01/16 20:04 tramadol Allergy Verified 06/09/19 13:21 Visit Medications: Current Medications Acetaminophen (Tylenol) 1,000 mg PO Q6H PRN PRN Reason: MILD PAIN 1-3 Last Admin: 06/17/19 11:28 Dose: 1,000 mg Hydrocodone Bitart/Acetaminophen ([place] 5/325) 1 tab PO Q4H PRN PRN Reason: Moderate Pain (4-6) Last Admin: 06/17/19 07:19 Dose: 1 tab Amiodarone HCl (Cordarone) 200 mg PO BID [facility] Last Admin: 06/17/19 09:12 Dose: 200 mg Apixaban (Eliquis) 2.5 mg PO BID [facility] Last Admin: 06/17/19 09:12 Dose: 2.5 mg [facility]amin C) [facility] Last Admin: 06/17/19 09:13 Dose: 500 mg Bisacodyl (Dulcolax) 10 mg PO DAILY [facility] Last Admin: 06/17/19 09:11 Dose: 10 mg Calcium Carbonate (Oscal-500) 500 mg PO DAILY [facility] Last Admin: 06/17/19 09:12 Dose: 500 mg Dextrose/Water (Dextrose 50%) 25 gm SLOW IVP PRN PRN PRN Reason: Hypoglycemia Famotidine (Pepcid) 20 mg PO DAILY [facility] Last Admin: 06/17/19 09:12 Dose: 20 mg Ferrous Sulfate (Feosol) [facility] Last Admin: 06/17/19 09:12 Dose: 325 mg Glucagon (Glucagon) 1 mg IM PRN PRN PRN Reason: Hypoglycemia Hydralazine HCl (Apresoline) 10 mg SLOW IVP Q4H PRN PRN Reason: SBP > 170 or DBP > 100 Last Admin: 06/17/19 14:06 Dose: 10 mg Dextrose/Water (D5w) 1,000 mls @ 0 mls/hr IV .Q0M PRN PRN Reason: Hypoglycemia Insulin Human Lispro (Humalog) 0 units SC .MODERATE SLIDING SC PRN; Protocol PRN Reason: MODERATE SLIDING SCALE Last Admin: 06/15/19 08:32 Dose: 2 unit Lisinopril (Zestril) 5 mg PO DAILY [facility] Last Admin: 06/17/19 12:46 Dose: 5 mg Melatonin (Melatonin) [address] [facility] Last Admin: 06/16/19 21:27 Dose: 3 mg Ondansetron HCl (Zofran) 4 mg IVP Q6H PRN PRN Reason: Nausea Polyethylene Glycol (Miralax) 17 gm PO DAILY [facility] Last Admin: 06/17/19 09:13 Dose: 17 gm Ropinirole HCl (Requip) 2 mg PO Q6H PRN PRN Reason: RESTLESS LEG/BODY Last Admin: 06/17/19 11:28 Dose: 2 mg Ropinirole HCl (Requip) [address] [facility] Last Admin: 06/16/19 21:26 Dose: 2 mg Senna/Docusate Sodium (Senokot S) 1 tab PO BID [facility] Last Admin: 06/17/19 09:13 Dose: 1 tab Sodium Chloride (Flush - Normal Saline) 10 ml IVF PRN PRN PRN Reason: Saline Flush Last Admin: 06/16/19 08:06 Dose: 10 ml Vital Signs & Weight: Vital Signs Temp Pulse BP Pulse Ox 06/17/19 14:06 87 205/105 H 06/17/19 12:46 87 205/105 H 06/17/19 11:47 98.2 F 06/17/19 08:00 91 L 06/17/19 07:19 97.3 F L 06/17/19 05:27 97.2 F L 06/17/19 04:05 97 Admit Weight 163 lb Weight 182 lb 14.4 oz - Physical Exam General: appears well HEENT: mucus membranes moist Neck: supple neck Cardiac: regular rate and rhythm Lungs: clear to auscultation Neuro: grossly intact Abdomen: unremarkable Extremities: no edema Skin: clear Musculoskeletal: no pain - Labs Result Diagrams: 06/17/19 03:35 06/17/19 03:35 Troponin/CKMB CK-MB (CK-2) 4.9 ng/mL (0-6.6) 06/11/19 17:04 Troponin I 0.096 ng/mL (< 0.028) H 06/11/19 17:04 - Telemetry Sinus rhythms and dysrhythmias: sinus rhythm - Assessment/Plan Assessment/Plan: 1. Afib RVR, remains in sinus 2. Spontaneous hip fracture s/p ORIF 3. Hx of TAVR 4. Confusion. Improved. 5. Hypotension, resolved. 6. UTI, proteus. PLAN: - Creatinine back to normal. - Continue Eliquis for full anticoagulation now. - Continue PO amiodarone load at 200 mg BID for 10 days then down to 200 mg daily. - Ready for hospital discharge from cardiac perspective. - Plan for inpatient rehab over the weekend./ - Will sign off. Please call with any questions. - Follow up in the office in 4-6 weeks.
--- NOTE | 2019-06-17 15:34 | PRG ---
DATE OF SERVICE: 06/17/2019 SUBJECTIVE: The patient was seen this morning, sitting up in bed with no signs of acute distress. She reported that she slept well overnight, but her family said that she did not. Her pain is well controlled. Sodium tablets and 1.8% saline were discontinued today. Kidney function continues to improve. OBJECTIVE: VITAL SIGNS: Temperature 97.3, pulse 80, respirations 26, oxygen saturation 93% on room air, and blood pressure 172/107. GENERAL: Well-appearing elderly female, sitting up in bed with no signs of acute distress. PULMONARY: Equal chest rise and fall. Clear breath sounds bilaterally. No signs of acute respiratory distress. CARDIAC: Regular rate and rhythm. No murmurs, gallops, or rubs. GASTROINTESTINAL: Abdomen is soft, nontender, and nondistended. EXTREMITIES: 2+ pulses in all extremities. NEUROLOGIC: Gross motor and sensation are intact. No significant swelling noted. GCS is 15. LABORATORY FINDINGS: White count 7.3, hemoglobin 8.9, hematocrit 28.8, and platelets 358. Sodium 138, potassium 4.5, chloride 106, bicarb 28, BUN 58, creatinine 0.92, glucose 152, phosphorus 2.8, and magnesium 2.1. DIAGNOSTIC FINDINGS: There are no new diagnostic findings to discuss. ASSESSMENT: 1. Status post right hip pain with ambulation. 2. Right subcapital hip fracture, status post repair. 3. Urinary tract infection, status post 3 days of Cipro. 4. Atrial fibrillation with rapid ventricular response, resolved. 5. Acute adrenal insufficiency, resolved. 6. Acute kidney injury, resolved. 7. Acute hyponatremia, resolved. 8. Delirium, improving. 9. History of restless legs syndrome, chronic back pain, diabetes, hypertension, aortic valve replacement, currently on Eliquis. PLAN: The patient will be transferred from the [facility] to [place] [id number]. We will discontinue the patient's hydrocortisone and start her on her home lisinopril. We will hold metoprolol as she is currently being treated for atrial fibrillation with amiodarone. We will follow up blood pressure after her p.o. medications have been restarted. Continue physical and occupational therapy. Discontinue Tucker. Continue to encourage good p.o. intake. The patient can have as much salt in her food as she likes. We will repeat blood work tomorrow. She will likely be discharged to rehab facility tomorrow if everything goes okay on the floor overnight. The patient was seen and examined by Dr. Carlos and myself this morning during rounds. Job ID: [id number] MTDD
[2019-06-17] MEDS ORDERED: rOPINIRole HCl 2 MG TAB PO SCH (16:00)
[2019-06-17] MEDS ORDERED: hydrALAZINE 20 MG/ML VIAL SLOW IVP SCH (16:15)
[2019-06-17] MEDS: Metoprolol Tartrate 25 MG TAB PO SCH (17:11)
[2019-06-17] MEDS: rOPINIRole HCl 2 MG TAB PO SCH (19:31)
[2019-06-17] MEDS: Melatonin 3 MG TAB PO SCH (20:25)
--- NOTE | 2019-06-18 01:02 | PRG ---
DATE OF SERVICE: 06/17/2019 SUBJECTIVE: The patient was seen this evening during rounds, awake, alert, sitting up in hospital bed, in no acute distress. The patient denies any complaints or concerns at this time. The patient continues to tolerate a diabetic diet. OBJECTIVE: VITAL SIGNS: Afebrile, stable. GENERAL: Well-appearing elderly female, sitting up in hospital bed, in no acute distress. PULMONARY: Equal chest rise and fall, no signs of respiratory distress. CARDIAC: Regular rate, regular rhythm. EXTREMITIES: Moves all extremities. NEUROLOGIC: No focal deficits. ASSESSMENT: 1. Status post right hip pain with ambulation. 2. Right subcapital hip fracture status post repair. 3. Urinary tract infection, status post 3 days Cipro. 4. Atrial fibrillation with rapid ventricular response, resolved, now sinus rhythm. 5. Acute adrenal insufficiency, resolved. 6. Acute kidney injury, resolved. 7. Acute hyponatremia, resolved. 8. Delirium, improving. 9. History of restless legs syndrome, chronic back pain, diabetes, hypertension, aortic valve replacement, currently on Eliquis. PLAN: Continue supportive care. Continue to have Physical and Occupational Therapy work with the patient. Continue regular diet as tolerated. Monitor urinary output. The patient is pending placement to inpatient rehab. Job ID: [id number]
[2019-06-18] MEDS: hydrALAZINE 20 MG/ML VIAL SLOW IVP PRN (03:47)
[2019-06-18] MEDS: rOPINIRole HCl 2 MG TAB PO PRN ×2 (04:04→12:11)
[2019-06-18] MEDS: Acetaminophen 500 MG TAB PO PRN ×2 (04:04→12:11)
[2019-06-18 05:15] VITALS: BMI 33.0
[2019-06-18 05:51] LABS: Anion Gap 12 mmol/L (10-20); BUN (Urea Nitrogen) 39 mg/dL (9.8-20.1); Calc. Creatinine Clearance 75 mL/min (70-130); Calcium 9.6 mg/dL (7.8-10.44); Carbon Dioxide 25 mmol/L (23-31); Chloride 109 mmol/L (98-107); Estimated GFR-MDRD 80; Glucose 109 mg/dL (83-110); Phosphorus 2.3 mg/dL (2.3-4.7); Potassium 4.5 mmol/L (3.5-5.1); Sodium 141 mmol/L (136-145)
[2019-06-18] MEDS: Ferrous Sulfate 325 MG TAB PO SCH (08:49)
[2019-06-18] MEDS: Senokot S 8.6-50 MG TAB PO SCH (08:49)
[2019-06-18] MEDS: Apixaban 2.5 MG TAB PO SCH (08:50)
[2019-06-18] MEDS: Metoprolol Tartrate 25 MG TAB PO SCH (08:50)
[2019-06-18] MEDS: Bisacodyl 5 MG TAB PO SCH (08:50)
[2019-06-18] MEDS: Famotidine 20 MG TAB PO SCH (08:51)
[2019-06-18] MEDS: Calcium Carbonate 500 MG TAB PO SCH (08:51)
[2019-06-18] MEDS: Ascorbic Acid 500 mg Chewable Tablet PO SCH (08:51)
[2019-06-18] MEDS: Polyethylene Glycol 3350 17 GM Packet PO SCH (08:51)
[2019-06-18] MEDS: Amiodarone 200 MG TAB PO SCH (08:51)
[2019-06-18] MEDS ORDERED: Lisinopril 10 MG TAB PO SCH (09:00)
--- NOTE | 2019-06-18 11:09 | EKG ---
Test Reason : Blood Pressure : / mmHG Vent. Rate : 077 BPM Atrial Rate : 077 BPM P-R Int : 188 ms QRS Dur : 130 ms QT Int : 402 ms P-R-T Axes : 000 001 020 degrees QTc Int : 454 ms Normal sinus rhythm Right bundle branch block Abnormal ECG Confirmed by JASWANT BAIG ([id number]), photographic editor GUILLERMINA ARMENTA ([id number]) on 06/18/2019 11:08:59 AM Referred By: Confirmed By:JASWANT BAIG
[2019-06-18] MEDS: HYDROcodone/Acetaminophen 5/325 mg Tablet PO PRN (14:06)
--- NOTE | 2019-06-18 14:33 | DIS ---
DATE OF ADMISSION: 06/09/2019 DATE OF DISCHARGE: 06/18/2019 ADMISSION DIAGNOSES: Right hip pain with ambulation, right subcapital hip fracture, urinary tract infection. DISCHARGE DIAGNOSES: Right hip pain with ambulation, right subcapital hip fracture, urinary tract infection, atrial fibrillation with rapid ventricular response, acute adrenal insufficiency, acute kidney injury, and acute hyponatremia. CONSULTING PHYSICIANS: Dr. Dias of Orthopedic Surgery, Dr. Ann of Cardiology, and Dr. Nash of Nephrology. PROCEDURES PERFORMED: The patient went to the OR on June 11, 2019, for a right hip bipolar hip hemiarthroplasty. HOSPITAL COURSE: The patient is an 88-year-old female, presented to the emergency department after a report of right-sided hip pain with ambulation. The patient was on Eliquis. It was found that she had a right subcapital hip fracture. She was admitted to the hospital, and 2 days later, she went to the OR. OR was delayed due to the patient's Eliquis use. Postoperatively, the patient had an acute episode of atrial fibrillation with RVR with hypotension. Subsequently, she received both fluid boluses and diuretics. She became volume depleted as well as acutely adrenal insufficient. As a result, she developed an acute kidney injury and hyponatremia. She received fluid resuscitation as well as sodium chloride tablets and 1.8% saline via IV. She also received hydrocortisone for the acute adrenal insufficiency and spent several days in the ICU and IMCU. She worked with Physical and Occupational Therapy. Course was complicated by previous history of restless legs syndrome causing her right lower extremity to shake aggressively. This caused more pain as it was on the side of her right hip fracture. At the time of discharge, the patient's pain was well controlled. She was tolerating a diabetic diet. She was working with Physical and Occupational Therapy and voiding without difficulty. Both Dr. Ann and Dr. Nash were asked to see the patient. Dr. Ann did change her medication to amiodarone as well as increase her home lisinopril. We also restarted her metoprolol before discharge. Dr. Nash recommended us to stop NSAIDs and discontinue diuretics. DISCHARGE DISPOSITION: Acute rehab facility. DISCHARGE CONDITION: Satisfactory. PHYSICAL EXAMINATION: VITAL SIGNS: Temperature 97.6, pulse 83, respirations 20, oxygen saturation 100% on 2 L nasal cannula, blood pressure 159/72. GENERAL: Elderly female, sitting up in chair with no signs of acute distress. PULMONARY: Equal chest rise and fall. Clear breath sounds bilaterally. No signs of acute respiratory distress. CARDIAC: Regular rate and rhythm. GASTROINTESTINAL: Abdomen is soft, nontender, and nondistended. EXTREMITIES: 2+ pulses in all extremities. Gross motor and sensation are intact. No significant swelling noted. NEUROLOGIC: GCS is 15. DISCHARGE INSTRUCTIONS: The patient was discharged to an acute rehab facility. She has activity as tolerated with weightbearing as tolerated on extremities. She has a diabetic diet and Glucerna b.i.d. She will have physical and occupational therapy. She has an incentive spirometry and a walker. DISCHARGE MEDICATIONS: Include: 1. Tylenol. 2. Amiodarone 200 mg b.i.d., For 7 more days, then she will go to 200 mg daily. 3. Eliquis 2.5 mg b.i.d. 4. Vitamin C. 5. Calcium carbonate. 6. Ferrous sulfate. 7. [place]. 8. Melatonin. 9. MiraLAX. 10. Requip. 11. Senokot-S. 12. Metoprolol. 13. Melatonin. 14. Multivitamin. 15. [place]-3 fish oil. FOLLOWUP APPOINTMENTS: The patient is to follow up with Dr. Dias, Dr. Nash, and Dr. Ann. There is no need for followup with [facility]. This is a summary of the patient's hospitalization. For full details, please see her medical record in its entirety. Job ID: [id number]
[2019-06-18 15:17] VITALS: BP 167/71; TEMP 97.6
== END 2019-06-18 16:53 | DRG 469 ==
LOC: ERS 06:09 → SURG B 12:33 → 2NO 06-11 16:32 → IMCU/EMU 06-11 18:05 → CCU 06-12 07:08 → IMCU/EMU 06-15 12:59 → SURG A 06-17 18:58
PROVIDERS: ADMIT Surgery; ATTEND Surgery
PROC: 0SRR0J9 Replacement of Right Hip Joint, Femoral Surface with Synthetic Substitute, Cemented, Open Approach (ICD-10-PCS; principal; 2019-06-11)
DX: M84.451A Pathological fracture, right femur, initial encounter for fracture (principal); G93.41 Metabolic encephalopathy; N17.0 Acute kidney failure with tubular necrosis; N39.0 Urinary tract infection, site not specified; E27.40 Unspecified adrenocortical insufficiency; E87.1 Hypo-osmolality and hyponatremia; E11.9 Type 2 diabetes mellitus without complications; I10 Essential (primary) hypertension; Z86.73 Personal history of transient ischemic attack (TIA), and cerebral infarction without residual deficits; Z95.2 Presence of prosthetic heart valve; Z96.651 Presence of right artificial knee joint; Z98.49 Cataract extraction status, unspecified eye; Z89.422 Acquired absence of other left toe(s); Z89.421 Acquired absence of other right toe(s); G89.29 Other chronic pain; G25.81 Restless legs syndrome; Z79.84 Long term (current) use of oral hypoglycemic drugs; Z88.5 Allergy status to narcotic agent; Z87.891 Personal history of nicotine dependence; I48.91 Unspecified atrial fibrillation; R41.0 Disorientation, unspecified; I95.9 Hypotension, unspecified
CPT/HCPCS: 36415; 36416; 71045; 72170; 72192; 74018; 80048; 80053; 80076; 81003; 81015; 82140; 82533; 82553; 83735; 83880; 83935; 84100; 84132; 84300; 84443; 84484; 85007; 85025; 85027; 87077; 87086; 87186; 93005; 93010; 93306; 96374; 96375; 96376; A4217; C1713; C1781; G0390; J0282; J0360; J0690; J0744; J1160; J1720; J1940; J2001; J2270; J2370; J2405; J2704; J3010; J7070

== ENCOUNTER 2019-06-24 08:43 | Inpatient (IN) | payer MEDICARE, OTHER ==
--- NOTE | 2019-06-24 09:20 | RAD ---
EXAM: Single view of the chest HISTORY: Respiratory distress and dyspnea COMPARISON: 06/22/2019 FINDINGS: Single view of the chest shows a normal sized cardiomediastinal silhouette. Low lung volum es accentuate the cardiomediastinal silhouette. Atherosclerotic calcifications are seen in the aorta. There is no evidence of consolidation, mass, or pleural effusion. The bones are unremarkable. IMPRESSION: No evidence of acute cardiopulmonary disease
[2019-06-24] MEDS ORDERED: Ketamine 50 MG/ML (10ML VIAL) ONE (09:21)
[2019-06-24] MEDS ORDERED: Rocuronium Bromide 10 MG/ML (10ML VIAL) ONE (09:21)
[2019-06-24] MEDS ORDERED: EPINEPHrine 1 MG/10 ML Abboject SYRINGE ONE (09:25)
[2019-06-24] MEDS ORDERED: fentaNYL Citrate/PF 2,000 MCG in Sodium Chloride 0.9% 60 ML IV SCH ×2 (09:38→12:54)
[2019-06-24] MEDS ORDERED: Fentanyl 100 MCG/2 ML VIAL ONE ×2 (09:39→10:03)
[2019-06-24] MEDS ORDERED: Midazolam HCl 2 mg/2 ml Vial ONE (09:43)
[2019-06-24 09:49] LABS: ALT (SGPT) 43 U/L (8-55); AST (SGOT) 33 U/L (5-34); Albumin 3.5 g/dL (3.4-4.8); Alkaline Phosphatase 76 U/L (40-110); Anion Gap 11 mmol/L (10-20); BUN (Urea Nitrogen) 44 mg/dL (9.8-20.1); Bilirubin, Total 0.3 mg/dL (0.2-1.2); Calc. Creatinine Clearance 0 mL/min (70-130); Calcium 9.7 mg/dL (7.8-10.44); Carbon Dioxide 32 mmol/L (23-31); Chloride 101 mmol/L (98-107); Estimated GFR-MDRD 33; Globulin 2.3 g/dL (2.4-3.5); Glucose 156 mg/dL (83-110); Protein, Total 5.8 g/dL (6.0-8.3); Sodium 137 mmol/L (136-145)
[2019-06-24 09:56] LABS: Potassium 6.6 mmol/L (3.5-5.1)
[2019-06-24] MEDS ORDERED: cefTRIAXone\\ROCEPHIN 2 GM VIAL ONE (09:56)
--- NOTE | 2019-06-24 09:57 | RAD ---
CHEST 1 VIEW: HISTORY: Status post intubation. COMPARISON: 06/24/2019. FINDINGS: Endotracheal tube and NG Tubes are in satisfactory location. Cardiomegaly. Mild bilateral vascular congestion with small pleural effusions, right greater than left. No overt confluent lobar pneumonia . IMPRESSION: Prominent bilateral vascular congestion with bilateral pleural effusions, greater on the right side, and cardiomegaly. The amount of congestion appears to be worse from prior study. POS: TPC
[2019-06-24 10:07] LABS: #Eosinphils 0.1 thou/uL (0.0-0.7); #Lymphocytes 0.8 thou/uL (1.20-3.40); #Monocytes 0.5 thou/uL (0.11-0.59); #Neutrophils 8.7 thou/uL (1.40-6.50); %Basophils 0.3 % (0.0-1.0); %Eosinophils 0.7 % (0.0-10.0); %Lymphocytes 7.5 % (21.0-51.0); %Monocytes 5.1 % (0.0-10.0); %Neutrophils 86.4 % (42.0-75.0); Hemoglobin 10.4 g/dL (12.0-16.0); Hypochromia SLIGHT = 6-15 cells (100X) (0-5/hpf); MDiff Complete? YES; Mean Corpuscular HGB CONC 28.6 g/dL (32.0-36.0); Mean Corpuscular Hemoglobin 27.4 pg (27.0-31.0); Mean Corpuscular Volume 95.5 fL (78.0-98.0); Mean Platelet Volume 7.5 fL (7.4-10.4); Ovalocytes SLIGHT = 2-5 cells (100X) (0-1/hpf); Platelet Count 310 thou/uL (130-400); Platelet Morphology Comment Appears Adequate; Polychromasia SLIGHT = 2-3 cells (100X) (0-2/hpf); RBC Distribution Width 15.3 % (11.5-14.5); Red Blood Cell (RBC) Count 3.79 mill/uL (4.20-5.40); White Blood Cell (WBC) Count 10.1 thou/uL (4.8-10.8)
[2019-06-24 10:10] LABS: CKMB 3.3 ng/mL (0-6.6)
[2019-06-24 10:12] LABS: Bilirubin Negative (Negative); Blood, Urine Moderate (Negative); Glucose, Urine (Dipstick) Negative (Negative); Leukocyte Large (Negative); Nitrite Negative (Negative); Protein, Urine (Dipstick) > or equal to 300 mg/dL (Neg-Trace); Urobilinogen 0.2 mg/dL (Less than 2)
[2019-06-24 10:13] LABS: Clarity Turbid (Clear)
[2019-06-24 10:23] LABS: Bacteria/HPF 4+ HPF (None Seen); WBC/HPF Greater Than 50 HPF (0-3)
[2019-06-24 10:25] LABS: Calcium Oxalate Crystals Rare HPF (None Seen); Squamous Epithelial 0-3 HPF (0-3); Transitional Epithelial 0-3 HPF (None Seen)
[2019-06-24 10:35] LABS: Actual Bicarbonate (HCO3a) 44.1 mEq/L (22-28); Analyzer IN Cardio ER; Base Excess (BEa) 10.4 mEq/L (-2.0 to +3.0); Calcium, Ionized 1.36 mmol/L (1.12-1.30); Carboxyhemoglobin (COHb) 0.3 gm% (0.0-3.0); Hemoglobin (Hb) 10.2 g/dL (12.0-16.0); Potassium - ABG Lab 6.06 mmol/L (3.70-5.30); pH, Arterial 7.08 (7.35-7.45)
[2019-06-24 10:36] LABS: O2 Tension (PaO2) 30.3 mmHg (> 60.0); Puncture Site RB
[2019-06-24 10:37] LABS: Actual Bicarbonate (HCO3a) 26.3 mEq/L (22-28); Analyzer IN Cardio ER; Base Excess (BEa) 2.1 mEq/L (-2.0 to +3.0); CO2 Tension 39.2 mmHg (35.0-45.0); Calcium, Ionized 1.23 mmol/L (1.12-1.30); Carboxyhemoglobin (COHb) 0.2 gm% (0.0-3.0); Hemoglobin (Hb) 9.5 g/dL (12.0-16.0); Potassium - ABG Lab 5.67 mmol/L (3.70-5.30); pH, Arterial 7.44 (7.35-7.45)
[2019-06-24 10:38] LABS: Puncture Site RB
[2019-06-24] MEDS ORDERED: Vancomycin 1.5 GRAM/300 ML BAG 1.5 GM in Premix Bag 1 BAG IVPB SCH (10:45)
[2019-06-24] MEDS ORDERED: Aspirin 300 MG Suppository ONE (10:55)
[2019-06-24] MEDS ORDERED: Norepinephrine 8 MG/0.9% NS 250 ML ONE (11:17)
[2019-06-24] MEDS ORDERED: Propofol 1,000 MG/100 ML VIAL IV ONE (11:17)
[2019-06-24] MEDS ORDERED: Acetaminophen 650 MG Suppository PR PRN (12:24)
[2019-06-24] MEDS ORDERED: Ondansetron ODT 4 MG TAB PO PRN (12:24)
[2019-06-24] MEDS ORDERED: Ondansetron PF 4 MG/2 ML Vial IVP PRN (12:24)
[2019-06-24 12:42] VITALS: BP 172/67; BMI 38.3
--- NOTE | 2019-06-24 12:48 | PDOC.HHP ---
Hospitalist HPI - History of Present Illness sob History of Present Illness: most of the h/p was obtain from the emr and er documenst, during my evaluation pt was sedated and on MV, and no family members were present during evaluation Case if an 88y/o female with pmhx of htn dm, TAVR with a recent hospitalization due to a hip fractures s/p ORIF, who came to hospital due to sob. during last hospitalization pt was complicated with new onset of afib in rvr and a uti with a positive culture for proteus. today patient was brought to hospital were she was treated with bipap w/o improvement of her symptoms, for which she required MV. sepsis bundles were also initiated due to u/a consistent with uti tachypnea and a decrease in bp for which levophed was started. during my evaluation i started to wean off due to bp over 175systolic. Hospitalist ROS - Review of Systems ROS unobtainable: due to endotracheal tube Hospitalist History - Past Medical History Source: old records Cardiac: reports: AFIB, Aortic stenosis Pulmonary: reports: CVA/TIA/stroke, hypertension Gastrointestinal: reports: GERD Endocrine: reports: Diabetes - Family History Other Family History: unable to obtain - Exam General Appearance: ill appearing Eye: anicteric sclera ENT: normocephalic atraumatic Neck: supple, symmetric, no thyromegaly, no lymphadenopathy Heart: no murmur, no gallops, no rubs, irregular Respiratory: CTAB, no wheezes, no rales, no ronchi Gastrointestinal: soft, non-tender, non-distended, normal bowel sounds Extremities: no cyanosis, no clubbing Skin: normal turgor, no rashes Neurological - other findings: sedated Musculoskeletal - other findings: sedated Psychiatric - other findings: sedated Hospitalist Results - Labs Result Diagrams: 06/24/19 09:12 06/24/19 09:12 Lab results: WBC 10.1 thou/uL (4.8-10.8) 06/24/19 09:12 Hgb 10.4 g/dL (12.0-16.0) L 06/24/19 09:12 Hct 36.2 % (36.0-47.0) 06/24/19 09:12 MCV 95.5 fL (78.0-98.0) 06/24/19 09:12 Plt Count 310 thou/uL (130-400) 06/24/19 09:12 Neutrophils % 86.4 % (42.0-75.0) H 06/24/19 09:12 ABG pH 7.44 (7.35-7.45) 06/24/19 09:50 ABG pCO2 39.2 mmHg (35.0-45.0) 06/24/19 09:50 ABG pO2 373.0 mmHg (> 60.0) H 06/24/19 09:50 Sodium 137 mmol/L (136-145) 06/24/19 09:12 Potassium 6.6 mmol/L (3.5-5.1) H* 06/24/19 09:12 Chloride 101 mmol/L (98-107) 06/24/19 09:12 Carbon Dioxide 32 mmol/L (23-31) H 06/24/19 09:12 BUN 44 mg/dL (9.8-20.1) H 06/24/19 09:12 Creatinine 1.49 mg/dL (0.6-1.1) H 06/24/19 09:12 Glucose 156 mg/dL (83-110) H 06/24/19 09:12 Lactic Acid 1.6 mmol/L (0.5-2.2) 06/24/19 10:46 Calcium 9.7 mg/dL (7.8-10.44) 06/24/19 09:12 Total Bilirubin 0.3 mg/dL (0.2-1.2) 06/24/19 09:12 AST 33 U/L (5-34) 06/24/19 09:12 ALT 43 U/L (8-55) 06/24/19 09:12 Alkaline Phosphatase 76 U/L (40-110) 06/24/19 09:12 CK-MB (CK-2) 3.3 ng/mL (0-6.6) 06/24/19 09:12 Troponin I 0.049 ng/mL (< 0.028) H 06/24/19 09:12 B-Natriuretic Peptide 1871.9 pg/mL (0-100) H 06/24/19 09:12 Serum Total Protein 5.8 g/dL (6.0-8.3) L 06/24/19 09:12 Albumin 3.5 g/dL (3.4-4.8) 06/24/19 09:12 Urine Ketones Trace mg/dL (Negative) A 06/24/19 09:37 Urine Blood Moderate (Negative) A 06/24/19 09:37 Urine Nitrite Negative (Negative) 06/24/19 09:37 Ur Leukocyte Esterase Large (Negative) H 06/24/19 09:37 Urine RBC 7-10 HPF (0-3) A 06/24/19 09:37 Urine WBC Greater Than 50 HPF (0-3) A 06/24/19 09:37 Ur Squamous Epith Cells 0-3 HPF (0-3) 06/24/19 09:37 Urine Bacteria 4+ HPF (None Seen) A 06/24/19 09:37 - Radiology Interpretation Chest x-ray Status: image reviewed by me (vascular congestion), report reviewed by wv Hospitalist H&P A/P - Problem (1) Respiratory failure Code(s): J96.90 - RESPIRATORY FAILURE, UNSP, UNSP W HYPOXIA OR HYPERCAPNIA Status: Acute Qualifiers: Respiratory failure complication: hypoxia and hypercapnia (2) Hyperkalemia Code(s): E87.5 - HYPERKALEMIA Status: Acute (3) Hypertension Code(s): I10 - ESSENTIAL (PRIMARY) HYPERTENSION Status: Acute (4) Diabetes Code(s): E11.9 - TYPE 2 DIABETES MELLITUS WITHOUT COMPLICATIONS Status: Acute (5) UTI (urinary tract infection) Status: Acute (6) Atrial fibrillation with controlled ventricular rate Code(s): I48.91 - UNSPECIFIED ATRIAL FIBRILLATION Status: Acute - Plan Plan: 88y/o female with the stated pmhx who comes from rehab due to sob, did not improve with bipap and was afterwards intubated and placed on MV. patient with vascular congestion on cxr and elevated pro bnp in the 1.8k with mild troponin elevation. after intubation pt developed hypotension and started on levophed, rocephin and vanc were administer at er, no leukocytosis present, does have a left shift on cbc -admit to icu -continue w MV & sedation -consult pulm/crit -consult cardiology -lasix 20mg iv q 12 -continue w rocephin, urine culture positive for proteus suceptible to rocephin in previous admission days ago -f/u blood cultures -continue home meds for chronic conditions -f/u troponin trend, initial w mild elevation -recent 2d echo will defer to cardiology if a f/u one needs to be done -weaning levophed as tolerated -kayexale for hyperkalemia
[2019-06-24] MEDS ORDERED: Propofol 1,000 MG/100 ML VIAL IV PRN (12:54)
[2019-06-24] MEDS ORDERED: Propofol BOLUS 1,000 MG/100 ML VIAL IV PRN (12:54)
[2019-06-24] MEDS ORDERED: Morphine 2 MG/ML SYRINGE SLOW IVP PRN ×2 (12:54→16:16)
[2019-06-24] MEDS ORDERED: Fentanyl BOLUS 250 ML IVPB PRN (12:54)
[2019-06-24] MEDS ORDERED: DISCONTINUE PREVIOUS NARCOTIC PAIN MEDICATIONS AND BENZODIAZEPINES FS SCH (12:54)
[2019-06-24] MEDS ORDERED: Lorazepam 2 MG/ML VIAL SLOW IVP PRN (12:54)
[2019-06-24 13:20] LABS: Troponin I 0.029 ng/mL (< 0.028)
[2019-06-24] MEDS ORDERED: Furosemide 20 MG/2 ML VIAL SLOW IVP SCH (14:00)
[2019-06-24 15:50] LABS: Troponin I 0.038 ng/mL (< 0.028)
--- NOTE | 2019-06-24 17:51 | CON ---
DATE OF CONSULTATION: 06/24/2019 This is 45 minutes critical care time CONSULTING PHYSICIAN: Dr. Bermudez from the hospitalist group. HISTORY OF PRESENT ILLNESS: This is an 88-year-old female, who has come to us from rehab where she was rehabilitating from a hip fracture. She developed shortness of breath this morning. She was brought here failed BiPAP and was subsequently intubated. The patient is now on mechanical ventilation. I spoke with the , daughter, and son-in-law at the bedside. PAST MEDICAL HISTORY: Remarkable for Parkinson disease, atrial fibrillation, aortic stenosis requiring TAVR, hypertension, stroke, acid reflux, diabetes mellitus. PAST SURGICAL HISTORY: Recent hip surgery. SOCIAL HISTORY: Quit smoking many years ago. Does not consume alcohol. ALLERGIES: CODEINE AND TRAMADOL. FAMILY HISTORY: Marked for diabetes. REVIEW OF SYSTEMS: Cannot be obtained. The patient is currently on mechanical ventilation. PHYSICAL EXAMINATION: VITAL SIGNS: Temperature 98, pulse 63, blood pressure 84/60, O2 saturation 100%. GENERAL: She is an elderly female, who appears chronically debilitated. She has a very profound parkinsonian tremor in body, arms, and legs. HEENT: She will open her eyes. NECK: No adenopathy or JVD. LUNGS: Coarse breath sounds. CARDIOVASCULAR: S1-S2 irregular. ABDOMEN: Soft and nontender to palpation. EXTREMITIES: No clubbing, cyanosis, or edema. NEUROLOGIC: Remarkable for a pill-rolling tremor in her arms. She has a resting tremor in her arms and feet. LABORATORY DATA: BNP level is 1871. Lactate 1.6. Sodium 137, potassium 6.6, chloride 101, CO2 of 32, BUN 44, creatinine 1.5, glucose 156. PH 7.44, pCO2 of 39, pO2 of 373. White blood cell count 10, hematocrit 36, and platelet count 310. Chest x-ray shows low lung volumes. Previous echocardiogram showed profound pulmonary hypertension. ASSESSMENT: 1. Acute respiratory failure, likely related to profound right-sided heart failure. 2. Respiratory failure, requiring mechanical ventilation. 3. Hyperkalemia. 4. Severe Parkinson disease. 5. Severe debilitation. PLAN: I spoke with the family. The asked the care be withdrawn. I told him to give me a little more time. I reviewed her records carefully. Also spoke to Dr. Carlos who took care of the patient during last hospitalization to see what feelings he had regarding her prognosis. He told me that she was extremely debilitated and did not show very good prognostic signs during her last hospitalization. Based on that, I have concurred with the family that withdrawal of care is appropriate given that this is her wishes. We will keep her comfortable with Ativan and morphine. She has been made a DNAR. Job ID: [id number]
[2019-06-24] MEDS: Lorazepam 2 MG/ML VIAL SLOW IVP PRN ×3 (18:04→20:24)
[2019-06-24 19:40] VITALS: TEMP 98
[2019-06-24] MEDS ORDERED: Metoprolol Tartrate 25 MG TAB PO SCH (21:00)
[2019-06-24] MEDS ORDERED: Amiodarone 200 MG TAB PO SCH (21:00)
[2019-06-24] MEDS ORDERED: Apixaban 2.5 MG TAB PO SCH (21:00)
[2019-06-25] MEDS ORDERED: Famotidine 20 MG TAB PO SCH (09:00)
[2019-06-25] MEDS ORDERED: cefTRIAXone\\ROCEPHIN 2 GM in Sodium Chloride 0.9% 100 ML IVPB SCH (10:00)
[2019-06-26] MEDS ORDERED: Amiodarone 200 MG TAB PO SCH (09:00)
--- NOTE | 2019-06-28 15:16 | PQF ---
CLINICAL DOCUMENTATION IMPROVEMENT CLARIFICATION FORM: ICD-10 Updated PLEASE DO AN ADDENDUM TO THE PROGRESS NOTE WITH ANY DOCUMENTATION UPDATES OR ADDITIONS AND CARRY THROUGH TO DC SUMMARY. THANK YOU. DATE: 06/28/19 ATTN: DR. NABIL SHARPE Please exercise your independent, professional judgment in responding to the clarification form. Clinical indicators are provided on the bottom of this form for your review Please check appropriate box(es): [ ] Sepsis due to: (Pna, UTI, gangrenous gall bladder, etc.) Due to: [ ] Device (please specify) [ ] Implant [ ] Graft [ ] Infusion [ ] SIRS due to non-infectious process (please specify etiology) [ ] with organ dysfunction [ ] without organ dysfunction [ ] Severe sepsis with acute organ dysfunction of: (Examples: respiratory failure, encephalopathy, acute kidney failure, other) [ ] Septic Shock [ ] Localized infection without sepsis [ ] Other diagnosis [ ] Unable to determine In addition, please specify: Present on Admission (POA): [ ] Yes [ ] No [ ] Unable to determine For continuity of documentation, please document condition throughout progress notes and discharge summary. Thank You. 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 All Rights Reserved SARAH [email or web address] Office: [phone] LESLIE
== END 2019-06-24 21:48 | disposition expired | DRG 208 ==
LOC: ERS 08:43 → CCU 09:27
PROVIDERS: ADMIT Internal Medicine; ATTEND Internal Medicine
PROC: 5A1935Z Respiratory Ventilation, Less than 24 Consecutive Hours (ICD-10-PCS; principal; 2019-06-24)
PROC: 0BH17EZ Insertion of Endotracheal Airway into Trachea, Via Natural or Artificial Opening (ICD-10-PCS; 2019-06-24)
DX: J96.01 Acute respiratory failure with hypoxia (principal); N39.0 Urinary tract infection, site not specified; J96.02 Acute respiratory failure with hypercapnia; E11.9 Type 2 diabetes mellitus without complications; Z95.2 Presence of prosthetic heart valve; I48.91 Unspecified atrial fibrillation; Z86.73 Personal history of transient ischemic attack (TIA), and cerebral infarction without residual deficits; K21.9 Gastro-esophageal reflux disease without esophagitis; E87.5 Hyperkalemia; G20 Parkinson's disease; Z87.891 Personal history of nicotine dependence; Z88.5 Allergy status to narcotic agent; Z88.8 Allergy status to other drugs, medicaments and biological substances; Z96.651 Presence of right artificial knee joint; Z89.422 Acquired absence of other left toe(s); Z89.421 Acquired absence of other right toe(s); I11.0 Hypertensive heart disease with heart failure; I50.9 Heart failure, unspecified; Z66 Do not resuscitate
CPT/HCPCS: 31500; 36415; 36416; 36556; 51702; 71045; 81003; 81015; 82553; 82805; 83605; 83880; 84443; 84484; 85025; 85379; 87040; 87077; 87086; 87186; 93005; 94002; 94640; 94660; 96361; 96365; 96367; 96368; 96375; 96376; 99292; J0171; J0696; J1940; J2060; J2250; J2704; J3010; J3490; J7620